=== PATIENT | female | born 1995 | race Hispanic/Latino ===

== ENCOUNTER 2018-05-23 13:11 | Emergency (ER) | payer MEDICAID ==
--- OUTSIDE RECORDS SUMMARY | 2018-05-23 13:13 | XMS REPORT ---
:1995 [facility] Address [address] [place] [address] Dr. Villegas. [address] [place] [id number] Care Team Providers Name Role Phone Unavailable Unavailable Unavailable Problems This patient has no known problems. Allergies, Adverse Reactions, Alerts This patient has no known allergies or adverse reactions. Medications This patient has no known medications.
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
[2018-05-23 15:02] VITALS: TEMP 98.1
[2018-05-23 15:03] VITALS: BP 121/80; O2SAT 99
== END 2018-05-23 14:56 | disposition home or self-care (01) ==
LOC: ER 13:11
DX: S20.219A Contusion of unspecified front wall of thorax, initial encounter (principal); V49.40XA Driver injured in collision with unspecified motor vehicles in traffic accident, initial encounter
CPT/HCPCS: 71045; 99284

== ENCOUNTER 2019-02-28 04:16 | Inpatient (IN) | payer OTHER ==
[~2019-02-28 04:16] MED LIST: CARBOPROST TROME 250 MCG/ML IM PRN; METHYLERGONOVINE 0.2MG/ML AMP IM PRN; OXYTOCIN/LR 20 UNIT/1,000 ML BAG IV SCH; Ringers Lactate 1,000 ML IV PRN; Ringers Lactate 1,000 ML IV SCH
--- OUTSIDE RECORDS SUMMARY | 2019-02-28 04:20 | XMS REPORT ---
:1995 [facility] Address [address] [place] [address] Dr. Villegas. [address] [place] [id number] Care Team Providers Name Role Phone Unavailable Unavailable Unavailable Problems This patient has no known problems. Allergies, Adverse Reactions, Alerts This patient has no known allergies or adverse reactions. Medications This patient has no known medications.
[2019-02-28 05:39] LABS: Basophils % 0.2 % (0-1.3); Hematocrit 35.3 % (36.0-45.0); Lymphocytes % 27.9 % (15.3-44.8); MPV 8.5 fL (7.6-11.3); RBC Red Blood Cell Count 3.97 M/uL (3.86-4.86)
[2019-02-28 05:46] VITALS: BMI 36.5
[2019-02-28 06:12] LABS: Urine Appearance CLOUDY; Urine Bilirubin NEGATIVE (NEG); Urine Blood 1+ (NEG); Urine Color YELLOW; Urine Glucose NEGATIVE (NEG); Urine Protein TRACE (NEG); Urine Specific Gravity 1.025 (1.005-1.030); Urine pH 6.5 (5.0-7.0)
[2019-02-28 06:13] LABS: Urine Microscopic Reflex ORDER UMIC
[2019-02-28 06:22] LABS: Urine Culture Reflex Order REFLEXED
[2019-02-28 06:24] LABS: Calcium Oxalate Crystals- Ur MANY (NONE SEEN); Urine Bacteria 20-50 /HPF (<20); Urine RBC <5 /HPF (NONE SEEN); Urine Urothelial Cells <5 /HPF (NONE SEEN)
[2019-02-28] MEDS ORDERED: FENTANYL CITR 100 MCG/2 ML IV ONE (07:23)
[2019-02-28] MEDS ORDERED: ROPIVACAINE HCL 0.2% 20ML AMP IV ONE (07:23)
[2019-02-28] MEDS ORDERED: ROPIVACAINE HCL 100 ML IV PRN (07:23)
[2019-02-28] MEDS ORDERED: FENTANYL CITR 100 MCG/2 ML ONE (08:25)
[2019-02-28] MEDS ORDERED: Oxycodone HCl/Acetaminophen 1 TAB TAB PO PRN ×2 (11:35)
[2019-02-28] MEDS ORDERED: BISACODYL 10 MG RECTAL SUPP RECT PRN (11:35)
[2019-02-28] MEDS ORDERED: ACETAMINOPHEN 500 MG TAB PO PRN (11:35)
[2019-02-28] MEDS ORDERED: DIPHENHYDRAMINE 25 MG TAB/CAP PO PRN (11:35)
[2019-02-28] MEDS ORDERED: DOCUSATE NA/SENNA CONC 1 TAB PO PRN (11:35)
[2019-02-28] MEDS ORDERED: OXYTOCIN/LR 20 UNIT/1,000 ML BAG IV SCH (12:00)
[2019-02-28] MEDS: IBUPROFEN 200 MG TAB PO PRN ×2 (12:46→22:20)
[2019-02-28 21:11] LABS: RPR (Rapid Plasma Reagin) NON-REACT (NON-REACT)
--- NOTE | 2019-02-28 22:16 | OP ---
Surgeon: Thomas Cuellar MD History: A 23-year-old 2, para 1, followed antepartum, noted to be gestational diabetic as p er [facility], 38 weeks 6 days to 39 weeks gestation, very favorable cervix at 4 to 4.5 prior to adm ission. Rupture of membranes at approximately 5 to 5.5 cm. Patient progressed to 8 cm to 9 cm at wh ich time Dr. Singh did epidural anesthesia, which gave great affect. A second stage of approximately 15 minutes spontaneous vaginal delivery in an estimated 7-pound plus female, Apgars 9 and 9, very sma ll first-degree laceration to posterior fourchette sutured with 3 sutures of 2-0 chromic. Juan nielsen of the placenta, which was inspected and noted to be intact and normal. 325 or less mL estim ated blood loss. The patient tolerated all procedures well. Rh positive, immune to Rubella, negativ e beta strep screen. Final Diagnoses: Term intrauterine 38 weeks 6 days to 39 weeks gestational diabetes, vagin al delivery, epidural anesthesia. SANDRITA/ZAYDA Voice ID: [id number] Report ID: [id number]
[2019-03-01 07:39] VITALS: TEMP 98.3
[2019-03-01] MEDS: IBUPROFEN 200 MG TAB PO PRN (08:45)
[2019-03-01] MEDS ORDERED: Tdap (Diph,Pertuss(Acell),Tet Vac) 0.5 ML SYR IMVAC ONE (09:40)
--- NOTE | 2019-03-01 09:57 | PN ---
Patient is now 8.5 cm, 90%, 0 station. We have called for epidural x2 with no success so far, hopefu lly they will be of get it in before she delivers, may be a spinal type block with fentanyl, but that is questionable at this point as the patient seems to be moving fairly rapidly. SANDRITA/ZAYDA Voice ID: [id number] Report ID: [id number]
--- NOTE | 2019-03-01 09:57 | PREOPHP ---
Date of Admission: 02/28/2019 23-year-old 4, para 3, diagnosed with gestational diabetes, by [facility], is now 38 weeks 6 days, possibly 39 weeks. Very favorable cervix. In fact, she is 4.5 cm in the office. This mornin g, she is 5.5 cm, 90% effaced, 0 station. Rupture of membranes, clear fluid. We will probably be re questing epidural soon. Labor talk given. She is Rh positive, immune to rubella and negative strep screen. SANDRITA/ZAYDA Voice ID: [id number]
--- NOTE | 2019-03-01 10:00 | DS ---
23-year-old 2, para 1, followed antepartum, noted to be gestational diabetic, diagnosed by [facility], delivered of a term infant, Apgars 9 and 9 and the 7 pound plus range, first-degree lacera tion sutured with 3 stitches, 2-0 chromic, epidural anesthesia. Schultze delivery of the placenta. Estimated blood loss 325 cc or less. Rh positive, immune to Rubella. Negative beta strep screen. P ostpartum; afebrile, ambulating and voiding. Lochia is normal. Requests no analgesics on dismissal. To report back to my office in 6 weeks for followup, to report any temperature elevation of 100 deg farhana or greater, severe pain, heavy bleeding, or any other type of abnormalities. She is waiting for a flu shot this morning. Final Diagnoses: Term intrauterine at 38 weeks 6 days, possibly 39 weeks. Vaginal deliver y. Epidural anesthesia. Flu shot pending. SANDRITA/ZAYDA Voice ID: [id number] Report ID: [id number]
[2019-03-01 13:40] VITALS: BP 134/81
[2019-03-04 19:26] LABS: HBsAG Nonreactive (Nonreactive)
== END 2019-03-01 13:20 | disposition home or self-care (01) | DRG 807 ==
LOC: 2ND-WC 04:16
PROVIDERS: ADMIT Specialist; ATTEND Specialist
PROC: 0HQ9XZZ Repair Perineum Skin, External Approach (ICD-10-PCS; principal; 2019-02-28)
PROC: 10E0XZZ Delivery of Products of Conception, External Approach (ICD-10-PCS; 2019-02-28)
DX: O24.429 Gestational diabetes mellitus in childbirth, unspecified control (principal); Z37.0 Single live birth; O70.0 First degree perineal laceration during delivery; Z3A.38 38 weeks gestation of pregnancy
CPT/HCPCS: 36415; 81003; 81015; 85025; 86592; 86850; 86900; 86901; 87086; 87088; 87340; 90715; J2210; J2590; J2795; J3010; J7120

== ENCOUNTER 2020-01-17 13:33 | Emergency (ER) | payer OTHER ==
--- OUTSIDE RECORDS SUMMARY | 2020-01-17 13:35 | XMS REPORT | Continuity of Care Document ---
:1995 Author Organization [facility] t Address [address] Villegas[address] [place] [address] Care Team Providers Name Role Phone Shelia Urias Attending Clinician Unavailable Problems This patient has no known problems. Allergies, Adverse Reactions, Alerts This patient has no known allergies or adverse reactions. Medications This patient has no known medications. Procedures This patient has no known procedures. Encounters Start End Encounter Admission Attending Care Care Encounter Source Date/Time Date/Time Type Type Clinicians Facility Department ID 2018-11-09 2018-11-09 Refill EHRVE Urias [id number] 00:00:00 00:00:00 Genaro Bass NEIGHBORHOOD PLANNER [id number] [facility] [id number] MATERNAL [id number] & CHILD [address] [place] [address] Results This patient has no known results.
[2020-01-17] MEDS ORDERED: NA CHLORIDE 0.9% 1,000 ML ONE (14:20)
[2020-01-17 14:56] LABS: Absolute Lymphocytes (CBC) 2.5 K/uL (0.7-4.9); Basophils % 0.4 % (0-1.3); Hematocrit 37.7 % (36.0-45.0); Lymphocytes % 28.1 % (15.3-44.8); MPV 8.2 fL (7.6-11.3); RBC Red Blood Cell Count 4.39 M/uL (3.86-4.86)
[2020-01-17 15:16] LABS: Potassium 3.5 mmol/L (3.5-5.1)
[2020-01-17 16:07] LABS: Urine Blood NEGATIVE (NEG); Urine Glucose NEGATIVE (NEG); Urine Protein NEGATIVE (NEG); Urine Specific Gravity 1.025 (1.005-1.030)
--- NOTE | 2020-01-17 16:48 | ER ---
Nurse's Notes [facility] Name: Pricila Xiong Age: 24 yrs Sex: Female : 1995 Arrival Date: 01/17/2020 Time: 13:35 Bed 19 Private MD: Diagnosis: related conditions, unspecified;Dizziness and giddiness;Volume depletion Presentation: 01/16 13:37 Chief complaint: Patient states: "I am having a headache and a little bit if dizziness. jd3 I am 6 weeks and I saw the doc yesterday who gave me meds for my vomiting.". Coronavirus screen: At this time, the client does not indicate any symptoms associated with coronavirus-19. Ebola Screen: Patient negative for fever greater than or equal to 101.5 degrees Fahrenheit, and additional compatible Ebola Virus Disease symptoms. Initial Sepsis Screen: Does the patient meet any 2 criteria? No. Patient's initial sepsis screen is negative. Does the patient have a suspected source of infection? No. Patient's initial sepsis screen is negative. Risk Assessment: Do you want to hurt yourself or someone else? Patient reports no desire to harm self or others. Onset of symptoms was January 14, 2020. 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 - Social history:: Smoking status: Patient denies any tobacco usage or history of. Screenin:45 Abuse screen: Denies threats or abuse. Nutritional screening: No deficits noted. rb3 Tuberculosis screening: No symptoms or risk factors identified. Fall Risk None identified. Assessment: 13:45 General: Appears in no apparent distress. comfortable, Behavior is calm, cooperative. rb3 Pain: Complains of pain in head. Neuro: Level of Consciousness is awake, alert, obeys commands, Oriented to person, place, time, situation, Reports dizziness, headache. Cardiovascular: Patient's skin is warm and dry. Respiratory: Airway is patent Respiratory effort is even, unlabored, Respiratory pattern is regular, symmetrical. 13:45 : No signs and/or symptoms were reported regarding the genitourinary system. Denies rb3 burning with urination, vaginal bleeding. 14:20 Reassessment: Patient appears in no apparent distress at this time. Patient and/or rb3 family updated on plan of care and expected duration. Pain level reassessed. Patient is alert, oriented x 3, equal unlabored respirations, skin warm/dry/pink. 15:44 Reassessment: Pt. ambulated to the restroom without difficulty. rb3 16:42 Reassessment: Patient appears in no apparent distress at this time. Patient and/or rb3 family updated on plan of care and expected duration. Pain level reassessed. Patient is alert, oriented x 3, equal unlabored respirations, skin warm/dry/pink. Patient denies pain at this time. Vital Signs: 13:39 BP 140 / 82; Pulse 98; Resp 17 S; Temp 97.7(TE); Pulse Ox 100% on R/A; Weight 86.64 kg jd3 (R); Height 5 ft. 0 in. (152.40 cm) (R); Pain 8/10; 15:40 BP 121 / 73; Pulse 78; Resp 16; Pulse Ox 98% ; rb3 16:59 BP 132 / 79 LA Supine (auto/reg); Pulse 80; Resp 16; Pulse Ox 99% on R/A; dh4 16:59 BP 136 / 91 LA Standing (auto/reg); Pulse 89; Resp 18; Pulse Ox 98% on R/A; dh4 16:59 BP 132 / 85 LA Sitting (auto/reg); Pulse 80; Resp 18; Pulse Ox 99% on R/A; dh4 13:39 Body Mass Index 37.30 (86.64 kg, 152.40 cm) jd3 ED Course: 13:35 Patient arrived in ED. as 13:38 Triage completed. jd3 13:41 Arm band placed on. jd3 13:45 Patient has correct armband on for positive identification. Bed in low position. Call rb3 light in reach. Side rails up X 1. Pulse ox on. NIBP on. 13:45 Inserted saline lock: 20 gauge in right antecubital area, using aseptic technique. rb3 Blood collected. 13:56 Alaina Brito FNP-C is [facility]. snw 13:56 Adonis Espana MD is Attending Physician. snw 17:10 No provider procedures requiring assistance completed. IV discontinued, intact, rb3 bleeding controlled, No redness/swelling at site. Pressure dressing applied. Administered Medications: 14:25 Drug: NS 0.9% 1000 ml Route: IV; Rate: 1 bolus; Site: right antecubital; rb3 15:51 Follow up: IV Status: Completed infusion rb3 Outcome: 16:48 Discharge ordered by . snw 17:10 Discharged to home ambulatory. rb3 17:10 Condition: stable 17:10 Discharge instructions given to patient, Instructed on discharge instructions, follow up and referral plans. Demonstrated understanding of instructions, follow-up care, Prescriptions given X none 17:11 Patient left the ED. rb3 Signatures: Alaina Brito FNP-C BACK SHOE WORKER-CsnCyndy Tripp Jonathon RN RN jd3 Patricio Ellis formerly [facility] Lyndsay Valderrama, RN RN rb3 Corrections: (The following items were deleted from the chart) 13:41 13:39 Resp 17bpm; Spontaneous; Pulse Ox 100% RA; Temp 97.7F; 86.64 kg Reported; Height jd3 5 ft. 0 in. Reported; BMI: 37.3; Pain 8/10; jd3 15:42 13:45 Respiratory: Airway is patent Respiratory effort is even, unlabored, Respiratory rb3 pattern is regular, symmetrical, rb3 15:42 15:41 : No signs and/or symptoms were reported regarding the genitourinary system. [id number] 15:45 13:45 : No signs and/or symptoms were reported regarding the genitourinary system. [id number]
--- NOTE | 2020-01-17 16:49 | EDPHYS ---
Physician Documentation [facility] Name: Pricila Xiong Age: 24 yrs Sex: Female : 1995 Arrival Date: 01/17/2020 Time: 13:35 Bed 19 Private MD: ED Physician Adonis Espana HPI: 01/16 14:24 This 24 yrs old Female presents to ER via Wheelchair with complaints of snw Dizziness - 6 wks preg. 14:24 The patient presents with lightheadedness. Onset: The symptoms/episode began/occurred snw acutely. Context: occurred at home, + , , pt went to help center, dates used 11/05/[address] Cuellar yesterday. Using 11/14/19 as LMP. Pt given rx for zofran. C/o dizziness. Associated signs and symptoms: Pertinent positives: nausea, . Severity of symptoms: At their worst the symptoms were moderate in the emergency department the symptoms have improved mildly, moderately. It is unknown whether or not the patient has had similar symptoms in the past. The patient has been recently seen by a physician: as noted. 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 - Social history:: Smoking status: Patient denies any tobacco usage or history of. ROS: 14:22 Constitutional: Negative for fever, chills, and weight loss, Eyes: Negative for injury, snw pain, redness, and discharge, ENT: Negative for injury, pain, and discharge, Neck: Negative for injury, pain, and swelling, Cardiovascular: Negative for chest pain, palpitations, and edema, Respiratory: Negative for shortness of breath, cough, wheezing, and pleuritic chest pain, Abdomen/GI: Negative for abdominal pain, nausea, vomiting, diarrhea, and constipation, Back: Negative for injury and pain, : Negative for injury, bleeding, discharge, and swelling, MS/Extremity: Negative for injury and deformity, Skin: Negative for injury, rash, and discoloration, Neuro: Negative for headache, weakness, numbness, tingling, and seizure, + dizziness Psych: Negative for depression, anxiety, suicide ideation, homicidal ideation, and hallucinations. Exam: 14:22 Constitutional: This is a well developed, well nourished patient who is awake, alert, snw and in no acute distress. Head/Face: Normocephalic, atraumatic. Eyes: Pupils equal round and reactive to light, extra-ocular motions intact. Lids and lashes normal. Conjunctiva and sclera are non-icteric and not injected. Cornea within normal limits. Periorbital areas with no swelling, redness, or edema. ENT: Nares patent. No nasal discharge, no septal abnormalities noted. Tympanic membranes are normal and external auditory canals are clear. Oropharynx with no redness, swelling, or masses, exudates, or evidence of obstruction, uvula midline. Mucous membranes moist. Neck: Trachea midline, no thyromegaly or masses palpated, and no cervical lymphadenopathy. Supple, full range of motion without nuchal rigidity, or vertebral point tenderness. No Meningismus. Chest/axilla: Normal chest wall appearance and motion. Nontender with no deformity. No lesions are appreciated. Cardiovascular: Regular rate and rhythm with a normal S1 and S2. No gallops, murmurs, or rubs. Normal PMI, no JVD. No pulse deficits. Respiratory: Lungs have equal breath sounds bilaterally, clear to auscultation and percussion. No rales, rhonchi or wheezes noted. No increased work of breathing, no retractions or nasal flaring. Abdomen/GI: Soft, non-tender, with normal bowel sounds. No distension or tympany. No guarding or rebound. No evidence of tenderness throughout. Back: No spinal tenderness. No costovertebral tenderness. Full range of motion. Skin: Warm, dry with normal turgor. Normal color with no rashes, no lesions, and no evidence of cellulitis. MS/ Extremity: Pulses equal, no cyanosis. Neurovascular intact. Full, normal range of motion. Neuro: Awake and alert, GCS 15, oriented to person, place, time, and situation. Cranial nerves II-XII grossly intact. Motor strength 5/5 in all extremities. Sensory grossly intact. Cerebellar exam normal. Normal gait. Psych: Awake, alert, with orientation to person, place and time. Behavior, mood, and affect are within normal limits. Vital Signs: 13:39 BP 140 / 82; Pulse 98; Resp 17 S; Temp 97.7(TE); Pulse Ox 100% on R/A; Weight 86.64 kg jd3 (R); Height 5 ft. 0 in. (152.40 cm) (R); Pain 8/10; 15:40 BP 121 / 73; Pulse 78; Resp 16; Pulse Ox 98% ; rb3 16:59 BP 132 / 79 LA Supine (auto/reg); Pulse 80; Resp 16; Pulse Ox 99% on R/A; dh4 16:59 BP 136 / 91 LA Standing (auto/reg); Pulse 89; Resp 18; Pulse Ox 98% on R/A; dh4 16:59 BP 132 / 85 LA Sitting (auto/reg); Pulse 80; Resp 18; Pulse Ox 99% on R/A; dh4 13:39 Body Mass Index 37.30 (86.64 kg, 152.40 cm) jd3 MDM: 13:57 Patient medically screened. snw 16:48 Data reviewed: vital signs, nurses notes. Data interpreted: Pulse oximetry: on room air snw is 98 %. Interpretation: normal. Counseling: I had a detailed discussion with the patient and/or guardian regarding: the historical points, exam findings, and any diagnostic results supporting the discharge/admit diagnosis, lab results, the need for outpatient follow up, to return to the emergency department if symptoms worsen or persist or if there are any questions or concerns that arise at home. Special discussion: Based on the history and exam findings, there is no indication for further emergent testing or inpatient evaluation. I discussed with the patient/guardian the need to see the OB Gyne specialist for further evaluation of the symptoms. I discussed with the patient/guardian the need to see the primary care provider for further evaluation of the symptoms. 01/16 13:58 Order name: Quantitative Hcg; Complete Time: 15:22 snw 01/16 13:58 Order name: Abo/rh Typing; Complete Time: 15:22 snw 01/16 13:58 Order name: Basic Metabolic Panel; Complete Time: 15:22 snw 01/16 13:58 Order name: CBC with Diff; Complete Time: 15:22 snw 01/16 15:50 Order name: Urine Dipstick--Ancillary (enter results); Complete Time: 16:13 em1 01/16 15:50 Order name: Urine --Ancillary (enter results); Complete Time: 16:13 em1 01/16 13:58 Order name: Urine Test (obtain specimen); Complete Time: 15:48 snw 01/16 13:58 Order name: IV Saline Lock; Complete Time: 15:16 snw 01/16 13:58 Order name: Labs collected and sent; Complete Time: 15:16 snw 01/16 13:58 Order name: NPO; Complete Time: 15:16 snw 01/16 13:58 Order name: Urine Dipstick-Ancillary (obtain specimen); Complete Time: 15:48 snw 01/16 16:34 Order name: Orthostatics; Complete Time: 17:00 snw Administered Medications: 14:25 Drug: NS 0.9% 1000 ml Route: IV; Rate: 1 bolus; Site: right antecubital; rb3 15:51 Follow up: IV Status: Completed infusion rb3 Disposition: 18:28 Co-signature as Attending Physician, Adonis Espana MD I agree with the assessment and kdr plan of care. Disposition: 01/17/20 16:48 Discharged to Home. Impression: related conditions, unspecified, Dizziness and giddiness, Volume depletion. - Condition is Stable. - Discharge Instructions: Dehydration, Adult, First Trimester of , Rehydration, Adult. - Medication Reconciliation Form, Thank You Letter, Antibiotic Education, Prescription Opioid Use, School release form form. - Follow up: Emergency Department; When: As needed; Reason: Worsening of condition. Follow up: Private Physician; When: 2 - 3 days; Reason: Recheck today's complaints, Continuance of care, Re-evaluation by your physician. Signatures: Dispatcher [employer] EDMS Adonis Espana MD MD kdr Waters, Shelly, FUNERAL HOME MANAGER-C FUNERAL HOME MANAGER-Jaycob Escobar RN RN jLyndsay Champagne RN RN rb3 Corrections: (The following items were deleted from the chart) 17:11 16:48 01/17/2020 16:48 Discharged to Home. Impression: related conditions, rb3 unspecified; Dizziness and giddiness; Volume depletion. Condition is Stable. Forms are Medication Reconciliation Form, Thank You Letter, Antibiotic Education, Prescription Opioid Use. Follow up: Emergency Department; When: As needed; Reason: Worsening of condition. Follow up: Private Physician; When: 2 - 3 days; Reason: Recheck today's complaints, Continuance of care, Re-evaluation by your physician. snw
[2020-01-17 18:31] VITALS: TEMP 97.7
[2020-01-17 18:35] VITALS: BP 132/85; O2SAT 99
== END 2020-01-17 17:11 | disposition home or self-care (01) ==
LOC: ER 13:33
DX: O99.281 Endocrine, nutritional and metabolic diseases complicating pregnancy, first trimester (principal); E86.9 Volume depletion, unspecified; Z3A.01 Less than 8 weeks gestation of pregnancy
CPT/HCPCS: 85025; 80048; 36415; 86900; 81025; 86901; 84702; 81003; 96360; 99284; J7030

== ENCOUNTER 2020-01-26 17:52 | Emergency (ER) | payer OTHER ==
--- OUTSIDE RECORDS SUMMARY | 2020-01-26 17:54 | XMS REPORT | Continuity of Care Document ---
:1995 Author Organization [facility] t Address [address] [place] [address] Care Team Providers Name Role Phone Shelia [...] Clinicians Facility Department ID 2018-11-09 2018-11-09 Refill HERVE Urias [id number] 00:00:00 00:00:00 Genaro Bass MID LEVEL NET DEVELOPER [id number] [facility] [id number] MATERNAL [phone] & CHILD [address] [place] [address] Results This patient has no known results.
[2020-01-26 18:45] LABS: Urine Amorphous Sediment 1+ /HPF (NONE SEEN); Urine Bacteria 20-50 /HPF (<20); Urine Culture Reflex Order REFLEXED
[2020-01-26 18:46] LABS: Urine Blood 2+ (NEG); Urine Glucose NEGATIVE (NEG); Urine Protein NEGATIVE (NEG); Urine Specific Gravity >1.030 (1.005-1.030); Urine pH 5.5 (5.0-7.0)
[2020-01-26 18:59] LABS: Absolute Lymphocytes (CBC) 2.4 K/uL (0.7-4.9); Hematocrit 37.6 % (36.0-45.0); Lymphocytes % 25.2 % (15.3-44.8); MPV 8.3 fL (7.6-11.3); RBC Red Blood Cell Count 4.34 M/uL (3.86-4.86)
[2020-01-26] MEDS ORDERED: CEFTRIAXONE/SWI 1gm 1 GM/10 ML SYR ONE (19:23)
[2020-01-26 19:27] LABS: BUN Blood Urea Nitrogen 6 mg/dL (7-18); Bicarbonate 26 mmol/L (21-32); Glucose Level 88 mg/dL (74-106); HCG, Quantitative 28619 mIU/mL (1-3); Potassium 3.7 mmol/L (3.5-5.1); Sodium Level 140 mmol/L (136-145)
--- NOTE | 2020-01-26 21:23 | ER ---
Nurse's Notes [facility] Name: Pricila Xiong Age: 24 yrs Sex: Female : 1995 Arrival Date: 01/26/2020 Time: 17:54 Bed 20 Private MD: Diagnosis: Threatened Presentation: 01/25 18:00 Chief complaint: Patient states: "I am and I am started to have bleeding and jd3 cramping.". Coronavirus screen: At this time, the client does not indicate any symptoms associated with coronavirus-19. Ebola Screen: Patient negative for fever greater than or equal to 101.5 degrees Fahrenheit, and additional compatible Ebola Virus Disease symptoms. Initial Sepsis Screen: Does the patient meet any 2 criteria? No. Patient's initial sepsis screen is negative. Does the patient have a suspected source of infection? No. Patient's initial sepsis screen is negative. Risk Assessment: Do you want to hurt yourself or someone else? Patient reports no desire to harm self or others. Onset of symptoms was January 26, 2020. 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 - Social history:: Smoking status: Patient/guardian denies using tobacco, Stopped _ months ago 2. Screenin:55 Abuse screen: Denies threats or abuse. Nutritional screening: No deficits noted. Tuberculosis screening: No symptoms or risk factors identified. Fall Risk None identified. Assessment: 18:20 General: Appears in no apparent distress. Behavior is calm, cooperative, appropriate for age. Pain: Complains of pain in suprapubic area Quality of pain is described as crampy, Pain began today. Neuro: Level of Consciousness is awake, alert, obeys commands, Oriented to person, place, time, situation, Appropriate for age. Cardiovascular: Heart tones S1 S2 present Capillary refill < 3 seconds Patient's skin is warm and dry. Respiratory: Airway is patent Respiratory effort is even, unlabored, Respiratory pattern is regular, symmetrical, GI: Abdomen is distended, noted to have ascites, Bowel sounds present X 4 quads. GI: Abdomen is distended, Abd is non tender Pt states that she is approx 7 weeks preg. Derm: Skin is intact, is healthy with good turgor, Skin is dry. Musculoskeletal: Circulation, motion, and sensation intact. Capillary refill < 3 seconds. 19:30 Reassessment: Patient appears in no apparent distress at this time. Patient is alert, lp1 oriented x 3, equal unlabored respirations, skin warm/dry/pink. Patient denies any pelvic cramping at this time, 0-10 on pain scale; aware of waiting for s tech for imaging Patient denies pain at this time. 21:38 Reassessment: Patient is alert, oriented x 3, equal unlabored respirations, skin lp1 warm/dry/pink. Patient denies pain at this time. Vital Signs: 18:02 BP 138 / 94; Pulse 98; Resp 17 S; Temp 98.4(TE); Pulse Ox 99% on R/A; Weight 86.64 kg jd3 (R); Height 5 ft. 0 in. (152.40 cm) (R); Pain 6/10; 19:30 BP 135 / 85; Pulse 88; Resp 16; Pulse Ox 98% on R/A; lp1 20:15 BP 127 / 64; Pulse 96; Resp 16; Pulse Ox 99% on R/A; lp1 21:38 BP 118 / 77; Pulse 80; Resp 16; Pulse Ox 100% on R/A; Pain 0/10; lp1 18:02 Body Mass Index 37.30 (86.64 kg, 152.40 cm) jd3 ED Course: 17:54 Patient arrived in ED. ag5 18:01 Triage completed. jd3 18:04 Arm band placed on. jd3 18:09 Boom Bolton NP is PHCP. pm1 18:09 Shahriar Booth MD is Attending Physician. pm1 18:13 Danya Onofre, RN is Primary Nurse. ah 18:54 Patient has correct armband on for positive identification. Placed in gown. Bed in low ah position. Call light in reach. Side rails up X 1. Pulse ox on. NIBP on. 18:54 Urine collected: clean catch specimen, clear. Inserted saline lock: 22 gauge in left ah antecubital area, using aseptic technique. Blood collected. 20:07 No provider procedures requiring assistance completed. lp1 20:23 PHCP role handed off by Boom Bolton NP cp 20:23 Dave Hargrove PA is PHCP. cp 20:26 Boom Bolton NP is PHCP. cp 20:47 US Transvaginal Ob In Process Unspecified. EDMS 21:05 PHCP role handed off by Boom Bolton NP cp 21:05 Dave Hargrove PA is PHCP. cp 21:22 Thomas Cuellar MD is Referral Physician. cp 21:39 IV discontinued, No redness/swelling at site. Pressure dressing applied. lp1 Administered Medications: 19:21 Drug: Rocephin 1 grams Route: IV; Rate: calculated rate; Site: left antecubital; lp1 20:30 Follow up: IV Status: Completed infusion; IV Intake: 10ml lp1 Intake: 20:30 IV: 10ml; Total: 10ml. lp1 Outcome: 21:22 Discharge ordered by . cp 21:39 Discharged to home ambulatory. lp1 21:39 Condition: good 21:39 Discharge instructions given to patient, Instructed on discharge instructions, follow up and referral plans. medication usage, Demonstrated understanding of instructions, follow-up care, medications, Prescriptions given X 1. 21:39 Patient left the ED. lp1 Signatures: Dispatcher [employer] [facility] Ebony James RN RN lp1 Dave Hargrove PA PA cp Boom Bolton NP EVENT SERVICES MANAGER pm1 Jaycob Trejo RN RN jd3 Gaskin, Ajare ag5 Danya Onofre RN RN ah Corrections: (The following items were deleted from the chart) 18:54 18:20 GI: Abd is non tender ah ah
--- NOTE | 2020-01-26 21:23 | EDPHYS ---
Physician Documentation [facility] Name: Pricila Xiong Age: 24 yrs Sex: Female : 1995 Arrival Date: 01/26/2020 Time: 17:54 Bed 20 Private MD: ED Physician Shahriar Booth HPI: 01/25 18:38 This 24 yrs old Female presents to ER via Ambulatory with complaints of pm1 Abdominal Cramping, Vaginal Bleeding, + Preg <12wks. 18:38 The patient presents to the emergency department with vaginal bleeding. The estimated pm1 gestational age is 7 weeks. course: care: none, Leakage of Fluid: none appreciated, Ultrasound: the patient has not had an ultrasound, Risk/complications: no obvious risks or complications are appreciated. Previous pregnancies: in previous pregnancies patient has had no complications. Associated signs and symptoms: Pertinent positives: suprapubic cramping and pain, Pertinent negatives: dysuria, fever, vaginal discharge. The patient has not experienced similar symptoms in the past. The patient has not recently seen a physician. 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 - Social history:: Smoking status: Patient/guardian denies using tobacco, Stopped _ months ago 2. ROS: 18:38 Constitutional: Negative for fever, chills, and weight loss, Cardiovascular: Negative pm1 for chest pain, palpitations, and edema, Respiratory: Negative for shortness of breath, cough, wheezing, and pleuritic chest pain. 18:38 Back: Negative for injury and pain, MS/Extremity: Negative for injury and deformity, Skin: Negative for injury, rash, and discoloration, Neuro: Negative for headache, weakness, numbness, tingling, and seizure. 18:38 Abdomen/GI: Positive for abdominal cramps, of the suprapubic area, Negative for nausea, vomiting, and diarrhea. 18:38 : Positive for vaginal bleeding, Negative for burning with urination, difficulty urinating. Exam: 18:38 Constitutional: This is a well developed, well nourished patient who is awake, alert, pm1 and in no acute distress. Head/Face: Normocephalic, atraumatic. 18:38 Abdomen/GI: Soft, non-tender, with normal bowel sounds. No distension or tympany. No guarding or rebound. No evidence of tenderness throughout. Skin: Warm, dry with normal turgor. Normal color with no rashes, no lesions, and no evidence of cellulitis. MS/ Extremity: Pulses equal, no cyanosis. Neurovascular intact. Full, normal range of motion. 18:38 Cardiovascular: Exam negative for acute changes, Rate: normal, Rhythm: regular, Pulses: no pulse deficits are appreciated. 18:38 Respiratory: Exam negative for acute changes, respiratory distress, shortness of breath. 18:38 Neuro: Exam negative for acute changes, Orientation: is normal, Mentation: is normal, Motor: is normal, moves all fours. Vital Signs: 18:02 BP 138 / 94; Pulse 98; Resp 17 S; Temp 98.4(TE); Pulse Ox 99% on R/A; Weight 86.64 kg jd3 (R); Height 5 ft. 0 in. (152.40 cm) (R); Pain 6/10; 19:30 BP 135 / 85; Pulse 88; Resp 16; Pulse Ox 98% on R/A; lp1 20:15 BP 127 / 64; Pulse 96; Resp 16; Pulse Ox 99% on R/A; lp1 21:38 BP 118 / 77; Pulse 80; Resp 16; Pulse Ox 100% on R/A; Pain 0/10; lp1 18:02 Body Mass Index 37.30 (86.64 kg, 152.40 cm) jd3 MDM: 18:09 Patient medically screened. pm1 18:41 Data reviewed: vital signs. Data interpreted: Pulse oximetry: on room air is 99 %. pm1 Interpretation: normal. 20:51 Transition of care: After a detail discussion of the patient's case, care is pm1 transferred to Dave PULLIAM. 01/25 18:10 Order name: Quantitative Hcg; Complete Time: 19:34 pm1 01/25 18:10 Order name: Abo/rh Typing; Complete Time: 19:14 pm1 01/25 18:10 Order name: Basic Metabolic Panel; Complete Time: 19:34 pm1 01/25 18:10 Order name: CBC with Diff; Complete Time: 19:08 pm1 01/25 18:10 Order name: Urine Microscopic Only; Complete Time: 18:49 pm1 01/25 18:26 Order name: Urine Dipstick--Ancillary (enter results); Complete Time: 18:49 mt 01/25 18:10 Order name: Urine Test (obtain specimen); Complete Time: 18:27 pm1 01/25 18:10 Order name: IV Saline Lock; Complete Time: 18:50 pm1 01/25 18:10 Order name: Labs collected and sent; Complete Time: 18:50 pm1 01/25 18:10 Order name: NPO; Complete Time: 18:26 pm1 01/25 18:26 Order name: Urine --Ancillary (enter results); Complete Time: 18:49 mt 01/25 18:38 Order name: US Transvaginal Ob; Complete Time: 09:10 pm1 01/25 18:46 Order name: Urine Culture EDMN 01/25 18:10 Order name: Urine Dipstick-Ancillary (obtain specimen); Complete Time: 18:26 pm1 Administered Medications: 19:21 Drug: Rocephin 1 grams Route: IV; Rate: calculated rate; Site: left antecubital; lp1 20:30 Follow up: IV Status: Completed infusion; IV Intake: 10ml lp1 Disposition: 01/26 07:05 Co-signature as Attending Physician, Shahriar Booth MD. rn Disposition: 01/26/20 21:22 Discharged to Home. Impression: Threatened . - Condition is Stable. - Discharge Instructions: Threatened Miscarriage, and Urinary Tract Infection, Pelvic Rest. - Prescriptions for Macrobid 100 mg Oral Capsule - take 1 capsule by ORAL route every 12 hours for 10 days; 20 capsule. - Medication Reconciliation Form, Thank You Letter, Antibiotic Education, Prescription Opioid Use form. - Follow up: Emergency Department; When: As needed; Reason: Worsening of condition. Follow up: Thomas Cuellar; When: 2 - 3 days; Reason: Recheck today's complaints, Continuance of care, Re-evaluation by your physician. - Problem is new. - Symptoms have improved. Signatures: Dispatcher [employer] EDMS Shahriar Booth MD MD rn Ebony James RN RN lp1 Dave Hargrove PA PA cp Boom Bolton, ERIKA PARIMUTUEL TICKET SELLER pm1 Jaycob Trejo RN RN jd3 Corrections: (The following items were deleted from the chart) 01/25 21:39 21:22 01/26/2020 21:22 Discharged to Home. Impression: Threatened . Condition lp1 is Stable. Discharge Instructions: Threatened Miscarriage, and Urinary Tract Infection, Pelvic Rest. Prescriptions for Macrobid 100 mg Oral Capsule - take 1 capsule by ORAL route every 12 hours for 10 days; 20 capsule. and Forms are Medication Reconciliation Form, Thank You Letter, Antibiotic Education, Prescription Opioid Use. Follow up: Emergency Department; When: As needed; Reason: Worsening of condition. Follow up: Thomas Cuellar; When: 2 - 3 days; Reason: Recheck today's complaints, Continuance of care, Re-evaluation by your physician. Problem is new. Symptoms have improved. cp
--- NOTE | 2020-01-26 21:46 | RAD REPORT ---
EXAM DESCRIPTION: US - Transvaginal OB - 01/26/2020 9:35 pm CLINICAL HISTORY: with vaginal bleeding COMPARISON: None. FINDINGS: The uterus measures 12 x 6 x 7 centimeters. A normal appearing gestational sac is present within the endometrium. Within this is a yolk sac and pole with a crown-rump length 0.8 centim eters. Cardiac activity 130 beats per minute Right and left ovary appear normal. 2.4 centimeter left ovarian cyst. . An adnexal mass is not noted. A sliver of fluid is present within the cervical canal No significant free fluid is seen. IMPRESSION: Single live intrauterine with an estimated gestational age 6 weeks 5 days ROGELIO 09/15/2020
[2020-01-27 01:25] VITALS: TEMP 98.4
[2020-01-27 01:30] VITALS: BP 118/77; O2SAT 100
== END 2020-01-26 21:39 | disposition home or self-care (01) ==
LOC: ER 17:52
DX: O20.0 Threatened abortion (principal); Z3A.01 Less than 8 weeks gestation of pregnancy
CPT/HCPCS: 96365; 87088; 85025; 87086; 80048; 36415; 86900; 81025; 86901; 84702; 76817; 99284; J0696; 81003; 81015

== ENCOUNTER 2020-08-24 20:09 | Inpatient (IN) | payer OTHER ==
[2020-08-24] MEDS ORDERED: METHYLERGONOVINE 0.2MG/ML AMP IM PRN (22:52)
[2020-08-24] MEDS ORDERED: CARBOPROST TROME 250 MCG/ML IM PRN (22:52)
[2020-08-24] MEDS ORDERED: Ringers Lactate 1,000 ML IV PRN (22:52)
[2020-08-24] MEDS ORDERED: Ringers Lactate 1,000 ML IV SCH (23:00)
[2020-08-24] MEDS ORDERED: OXYTOCIN/LR 20 UNIT/1,000 ML BAG IV SCH (23:00)
[2020-08-24] MEDS ORDERED: FENTANYL CITR 100 MCG/2 ML IV ONE (23:08)
[2020-08-24 23:16] LABS: Urine Appearance CLEAR (Clear); Urine Bilirubin NEGATIVE (Negative); Urine Blood NEGATIVE (Negative); Urine Color YELLOW (Yellow); Urine Glucose NEGATIVE (Negative); Urine Protein NEGATIVE (Negative)
[2020-08-24 23:18] VITALS: BMI 37.5
[2020-08-24 23:20] LABS: Urine Microscopic Reflex ORDER UMIC
[2020-08-24 23:27] LABS: Absolute Lymphocytes (CBC) 2.8 K/uL (0.7-4.9); Basophils % 0.5 % (0-1.3); Hematocrit 38.5 % (36.0-45.0); Lymphocytes % 24.3 % (15.3-44.8); MPV 8.9 fL (7.6-11.3); RBC Red Blood Cell Count 4.29 M/uL (3.86-4.86)
[2020-08-24 23:52] LABS: Urine Bacteria <20 /HPF (<20); Urine RBC <5 /HPF (NONE SEEN); Urine Urothelial Cells <5 /HPF (NONE SEEN)
[2020-08-25 00:05] LABS: RPR (Rapid Plasma Reagin) NON-REACT (NON-REACT)
[2020-08-25] MEDS ORDERED: ROPIVACAINE HCL 100 ML EP ONE (00:11)
[2020-08-25] MEDS ORDERED: ROPIVACAINE HCL 0 ML ONE (00:11)
[2020-08-25] MEDS ORDERED: miSOPROStoL 100 MCG TAB ONE (05:30)
[2020-08-25] MEDS ORDERED: ONDANSETRON 4 MG (ODT) TAB PO PRN (05:34)
[2020-08-25] MEDS ORDERED: DOCUSATE NA/SENNA CONC 1 TAB PO PRN (05:34)
[2020-08-25] MEDS ORDERED: IBUPROFEN 200 MG TAB PO PRN (05:34)
[2020-08-25] MEDS ORDERED: Tdap (Diph,Pertuss(Acell),Tet Vac) 0.5 ML SYR IMVAC ONE (05:34)
[2020-08-25] MEDS: Oxycodone HCl/Acetaminophen 1 TAB TAB PO PRN ×2 (06:45→22:50)
[2020-08-25] MEDS: METHYLERGONOVINE 0.2 MG TAB PO PRN ×4 (06:45→19:00)
[2020-08-25] MEDS ORDERED: METHYLERGONOVINE 0.2 MG TAB PO ONE (07:05)
[2020-08-25] MEDS ORDERED: OXYTOCIN/LR 20 UNIT/1,000 ML BAG IV ONE (08:29)
--- NOTE | 2020-08-25 09:17 | PN ---
Pricila Patino is a multiparous female, delivered early this morning by Dr. Wood, had a r outine delivery, no lacerations. Initial blood loss estimate of 100 cc. Then, the patient apparentl y experienced uterine hypotonus, was given Cytotec 400 mcg rectally as well as IM Pitocin and IV Nolan scott and IM Methergine. Her lochia is now normal. We will continue the IV until lunchtime. Continue the Methergine orally every 4 hours. Right now, it looks like the patient just experienced uterine hypotonus, which is now responding to the medications. We will keep her n.p.o. until everything has been normal for several hours. Doing well otherwise. SANDRITA/ZAYDA Voice ID: [id number] Report ID: [id number]
[2020-08-25] MEDS ORDERED: OXYTOCIN/LR 20 UNIT/1,000 ML BAG IV SCH (12:00)
[2020-08-26 09:00] VITALS: BP 119/64; TEMP 97.5
[2020-08-26] MEDS ORDERED: Tdap (Diph,Pertuss(Acell),Tet Vac) 0.5 ML SYR IMVAC ONE (10:00)
[2020-08-26] MEDS ORDERED: IBUPROFEN 600 MG TAB PO PRN (10:00)
--- NOTE | 2020-08-26 10:36 | DS ---
Hospital Course: Pricila Patino is a 24-year-old, multiparous female, followed antepartu m and noted to be gestational diabetic in good control. Came into Labor and Delivery at 37 weeks in active labor, was delivered of a 7-pound 3-ounce female, Apgars 9 and 9. No episiotomy. No lacerati ons. Epidural anesthesia. Schultze delivery of the placenta with initial blood loss estimated at 10 0 mL. Negative strep. Negative immune to rubella and Rh positive. Within the first hour, experienc ed uterine hypotonus, was given Cytotec rectally, IV drip Pitocin and massage and this stopped bleedi ng. She was subsequently put on Methergine every 4 hours x4 doses and this has been completed. She will be dismissed later this morning to report back to my office in 6 weeks for followup to report an y temperature elevation of 100 degrees or greater, severe pain, heavy bleeding, or any other type of problems. No post epidural problems reported. Tdap has been suggested numerous times during the pre gnancy and again today. Final Diagnoses: Term intrauterine at 37 weeks, gestational diabetes, spontaneous labor, v aginal delivery, uterine hypotonus now resolved, dismissed. SANDRITA/MODL Voice ID: [id number] Report ID: [id number]
[2020-08-27 19:28] LABS: HBsAG Nonreactive (Nonreactive)
== END 2020-08-26 11:25 | disposition home or self-care (01) | DRG 807 ==
LOC: L&D 20:09 → 2ND-WC 22:51
PROVIDERS: ADMIT Obstetrics & Gynecology; ATTEND Obstetrics & Gynecology
PROC: 10E0XZZ Delivery of Products of Conception, External Approach (ICD-10-PCS; principal; 2020-08-25)
PROC: 3E033VJ Introduction of Other Hormone into Peripheral Vein, Percutaneous Approach (ICD-10-PCS; 2020-08-25)
PROC: 10907ZC Drainage of Amniotic Fluid, Therapeutic from Products of Conception, Via Natural or Artificial Opening (ICD-10-PCS; 2020-08-25)
DX: O24.429 Gestational diabetes mellitus in childbirth, unspecified control (principal); Z37.0 Single live birth; O62.0 Primary inadequate contractions; Z3A.37 37 weeks gestation of pregnancy; Z20.822 Contact with and (suspected) exposure to COVID-19; Z23 Encounter for immunization
CPT/HCPCS: 36415; 81003; 81015; 85025; 86592; 86901; 87086; 87088; 87340; 88307; 90471; 90715; J2210; J2590; J2795; J3010; J7120; U0003

== ENCOUNTER → 2023-05-18 | Emergency (ER) | payer OTHER, SELFPAY ==
[~2023-05-18] MED LIST changes: -CARBOPROST TROME 250 MCG/ML IM PRN; -METHYLERGONOVINE 0.2MG/ML AMP IM PRN; -OXYTOCIN/LR 20 UNIT/1,000 ML BAG IV SCH; -Ringers Lactate 1,000 ML IV PRN; -Ringers Lactate 1,000 ML IV SCH; +SMZ./TMP. 800/160 MG TABLET ONE; +TRAMADOL HCL 50 MG TAB ONE
--- OUTSIDE RECORDS SUMMARY | 2023-05-18 10:44 | XMS REPORT | Continuity of Care Document ---
Author Name Unknown Address [address] [facility] [address] [place] [address] [facility] thconnect Address [address] [place] [address] Care Team Providers Care Web Content Manager Name Role Phone PCP, PATIENT DOES NOT HAVE A Primary Care Physic eldon Unavailable YARY AMBROCIO Attending Clinician Unavailable Yary Ambrocio DO Attending Clinician [phone] [email or web address]_Kajennifera_S Attending Clinician UnavailKAILASH Grant Attending Clinician Unavailable Kailash Sosa Attending Clinician [phone] INA YEE Attending Clinician UnavailIna Decker Attending Clinician [phone] VICTORIA MILES Attending Clinician Unavailable YURI FLORES Attending Clinician Unavail able Genaro Urias Attending Clinician Unavailable GC_GCBZW_Kadikattya_S Admitting Clinician UnavailKAILASH Grant Admitting Clinician Unavailable Payers Payer Name Policy Type Policy Number Effective Date Expirati on Date Source [facility] [id number] 2022 00:00:00 [place] [id number] 2019 00:00:00 Problems Condition Name Condition Details Condition Category Status Onset Date Resolution Date Last Treatment Date Treating Clinician Comments Source Pregestati onal diabetes mellitus, 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 Failed early 3hr gtt [facility] Abnormal maternal glucose tolerance, antepartum Abnormal maternal glucose tolerance, antepartum Disease Active 07-05 00:00: 00 Overview: Formattin g of this note might be different from the original. Failed 3hr gtt [facility] History of pre-eclamp abril History of pre-eclamp abril Disease Active 07-04 00:00: 00 [facility] History of delivery History of delivery Disease Active 07-04 00:00: 00 Overview: Formattin g of this note might be different from the original. ROR requested [id number] ay for IOL for NRFHT [facility] Supervisio n of high-risk Supervisio n of high-risk Disease Active 07-04 00:00: 00 [facility] Multiparit y Multiparit y Disease Active 07-04 00:00: 00 [facility] Obesity in Obesity in Disease Active 10-14 00:00: 00 [facility] Allergies, Adverse Reactions, Alerts Allergy Name Allergy Type Status Severity Reaction(s) Onset Date Inactive Date Treating Clinician Comments Source NO KNOWN ALLERGIE S Drug Class Active [facility] Social History Social Habit Start Date Stop Date Quantity Comments Source ASSERTION 2018-05-30 00:00:00 [facility] Gender [facility] intake 2022-11-02 00:00:00 2022-11-02 00:00:00 0 /d [facility] Exposure to SARS-CoV-2 (event) 2022-02-28 00:00:00 2022-03-10 14:36:00 Not sure [facility] History of Social function 2018-09-21 00:00:2018-09-21 00:00:00 [facility] Tobacco use and exposure 2012-10-23 00:00:00 2012-10-23 00:00:00 Smokeless tobacco non-user [facility] Sex Assigned At 1995 00:00:00 1995 00:00:00 [facility] Smoking Status Start Date Stop Date Source Never smoked tobacco [facility] Medications Ordered Medication Name Filled Medication Name Start Date Stop Date Current Medication? Ordering Clinician Indication Dosage Frequency Signature (SIG) Comments Components Source ondansetron (ZOFRAN-ODT ) disintegrat ing tablet 8 mg 05-15 04:00: 00 05-15 03:06 :00 No 8mg 8 mg, Oral, ONCE, 1 dose, On 05/15/23 at 2200, Routine [facility] naproxen (NAPROSYN) tablet 500 mg 05-15 04:00: 00 05-15 03:06 :00 No 500mg 500 mg, Oral, ONCE NOW, 1 dose, On 05/15/23 at 2200, Routine [facility] naproxen sodium (ANAPROX DS) 550 mg tablet 05-14 00:00: 00 Yes [id number] 550mg Take 1 tablet by mouth in the morning and 1 tablet in the evening. Take with meals. [facility] ondansetron 4 mg disintegrat ing tablet 05-14 00:00: 00 Yes [id number] 4mg Take 1 tablet by mouth every 8 (eight) hours as needed for Nausea and Vomiting (N/V). [facility] methylPREDN ISolone (MEDROL, CAYDEN,) 4 mg tablets 05-14 00:00: 00 Yes [id number] Take by mouth SEE-INSTRU CTIONS. follow package directions [facility] ketorolac (TORADOL) injection 30 mg 11-02 19:15: 00 11-02 18:47 :00 No 30mg 30 mg, Slow IV Push, ONCE, 1 dose, On Tue11/02/22 at 1415, SAVAGE [facility] cefTRIAXone (ROCEPHIN) 1,000 mg in NaCl 0.9% (NS) 100 mL MINI-BAG 11-02 18:45: 00 11-02 19:04 :00 No 1000mg 1,000 mg, IV Piggyback, ONCE, 1 dose, On Tue11/02/22 at 1345, Administer over 30 Minutes, 100 mL
Reas on for Anti-Infec tive: Documented Infection< br>Documen lisa Infection Site: Urine
D uration of Therapy: 7 days [facility] ondansetron (ZOFRAN (PF)) injection 4 mg 11-02 18:30: 00 11-02 18:46 :00 No 4mg 4 mg, Slow IV Push, ONCE, 1 dose, On Tue11/02/22 at 1330, SAVAGE [facility] ondansetron 4 mg disintegrat ing tablet 11-02 00:00: 00 Yes [id number] 4mg Take 1 tablet by mouth every 8 (eight) hours as needed for Nausea and Vomiting (N/V). [facility] ondansetron 4 mg disintegrat ing tablet 11-02 00:00: 00 05-14 00:00 :00 No [id number] 4mg Take 1 tablet by mouth every 8 (eight) hours as needed for Nausea and Vomiting (N/V). [facility] cefdinir 300 mg capsule 11-02 00:00: 00 11-13 04:59 :00 No [id number] 300mg Take 1 capsule by mouth in the morning and 1 capsule in the evening. Do all this for 10 days. [facility] ketorolac (TORADOL) injection 30 mg 2021-03 22:45: 00 03-10 22:22 :00 No 30mg 30 mg, Intramuscu lar, ONCE, 1 dose, On Tue03/10/22 at 1645, Routine [facility] metoclopram andre HCl (REGLAN) injection 10 mg 2021-03 22:00: 00 03-10 22:24 :00 No 10mg 10 mg, Intramuscu lar, ONCE, 1 dose, On Tue03/10/22 at 1600, [facility] blood sugar diagnostic (TRUE METRIX GLUCOSE TEST STRIP) strip 07-11 00:00: 00 Yes [id number] Check glucose 4 x daily [facility] Blood-Gluco se Meter (TRUE METRIX AIR GLUCOSE METER) Kit 07-11 00:00: 00 Yes [id number] Check blood glucose 4x daily [facility] lancets 28 gauge [facility] 07-11 00:00: 00 Yes [id number] Check blood glucose 4x daily [facility] blood sugar diagnostic (TRUE METRIX GLUCOSE TEST STRIP) strip 07-11 00:00: 00 Yes [id number] Check glucose 4 x daily [facility] Blood-Gluco se Meter (TRUE METRIX AIR GLUCOSE METER) Kit 07-11 00:00: 00 Yes [id number] Check blood glucose 4x daily [facility] lancets 28 gauge [facility] 07-11 00:00: 00 Yes [id number] Check blood glucose 4x daily [facility] blood sugar diagnostic (TRUE METRIX GLUCOSE TEST STRIP) strip 07-11 00:00: 00 Yes [id number] [facility] (TRUE METRIX AIR GLUCOSE METER) Kit 07-11 00:00: 00 Yes [id number] Check blood glucose 4x daily [facility] lancets 28 gauge [facility] 07-11 00:00: 00 Yes [id number] [facility] (TRUE METRIX GLUCOSE TEST STRIP) strip 07-11 00:00: 00 Yes [id number] [facility] x [facility] (TRUE METRIX AIR GLUCOSE METER) Kit 07-11 00:00: 00 Yes [id number] Check blood glucose 4x daily [facility] lancets 28 gauge [facility] 07-11 00:00: 00 Yes [id number] Check blood glucose 4x daily [facility] vit #33-iron-FA -dha (SELECT-OB + DHA) 29 mg iron-1 mg -250 mg combo pack 04-25 00:00: 00 Yes [id number] 1{packe t} Take 1 Packet by mouth daily. [facility] vit #33-iron-FA -dha (SELECT-OB + DHA) 29 mg iron-1 mg -250 mg combo pack 04-25 00:00: 00 Yes [id number] 1{packe t} Take 1 Packet by mouth daily. [facility] vit #33-iron-FA -dha (SELECT-OB + DHA) 29 mg iron-1 mg -250 mg combo pack 04-25 00:00: 00 Yes [id number] 1{packe t} Take 1 Packet by mouth daily. [facility] vit #33-iron-FA -dha (SELECT-OB + DHA) 29 mg iron-1 mg -250 mg combo pack 04-25 00:00: 00 Yes [id number] 1{packe t} Take 1 Packet by mouth daily. [facility] Immunizations Ordered Immunization Name Filled Immunization Name Date Status Comments Source HPV9 2015-11-10 00:00:00 Completed [facility] HPV9 2015-11-10 00:00:00 Completed [facility] HPV9 2015-11-10 00:00:00 Completed [facility] Tdap 2015-07-07 00:00:00 Completed [facility] TDAP 2015-07-07 00:00:00 Completed [facility] TDAP 2015-07-07 00:00:00 Completed [facility] Influenza Virus Vaccine Quad IM 3+ YRS 2015-02-27 00:00:00 Completed [facility] Influenza Virus Vaccine Quad IM 3+ YRS 2015-02-27 00:00:00 Completed [facility] Influenza Virus Vaccine Quad IM 3+ YRS 2015-02-27 00:00:00 Completed [facility] Tdap 2013-04-04 00:00:00 Completed [facility] TDAP 2013-04-04 00:00:00 Completed [facility] TDAP 2013-04-04 00:00:00 Completed [facility] Influenza Virus Vaccine (3+ yrs) 2012-12-05 00:00:00 Completed [facility] Influenza Virus Vaccine (3+ yrs) 2012-12-05 00:00:00 Completed [facility] Influenza Virus Vaccine (3+ yrs) 2012-12-05 00:00:00 Completed [facility] Tdap 2012-09-11 00:00:00 Completed [facility] TDAP 2012-09-11 00:00:00 Completed [facility] TDAP 2012-09-11 00:00:00 Completed [facility] TDAP Unknown Completed [facility] Influenza Virus Vaccine (3+ yrs) Unknown Completed [facility] TDAP Unknown Completed [facility] Influenza Virus Vaccine Quad IM 3+ YRS Unknown Completed [facility] TDAP Unknown Completed [facility] HPV9 Unknown Completed [facility] Vital Signs Vital Name Observation Time Observation Value Comments S ource Systolic blood pressure 2023-05-16 02:54:00 139 mm[Hg] [facility] Diastolic blood pressure 2023-05-16 02:54:00 80 mm[Hg] [facility] Heart rate 2023-05-16 02:54:00 99 /min [facility] Body temperature 2023-05-16 02:54:00 37.5 Nery [facility] Respiratory rate 2023-05-16 02:54:00 18 /min [facility] Body height 2023-05-16 02:54:00 154.9 cm [facility] Body weight 2023-05-16 02:54:00 81.647 kg [facility] BMI 2023-05-16 02:54:00 34.01 kg/m2 [facility] Oxygen saturation in Arterial blood by Pulse oximetry 2023-05-16 02:54:00 96 /min [facility] Systolic blood pressure 2022-11-02 20:35:00 140 mm[Hg] [facility] Diastolic blood pressure 2022-11-02 20:35:00 98 mm[Hg] [facility] Heart rate 2022-11-02 20:35:00 77 /min [facility] Respiratory rate 2022-11-02 20:35:00 16 /min [facility] Oxygen saturation in Arterial blood by Pulse oximetry 2022-11-02 20:35:00 100 /min [facility] Body temperature 2022-11-02 17:46:00 36.89 Nery [facility] Body height 2022-11-02 17:46:00 154.9 cm [facility] Body weight 2022-11-02 17:46:00 86.183 kg [facility] BMI 2022-11-02 17:46:00 35.90 kg/m2 [facility] Systolic blood pressure 2022-03-10 20:38:00 152 mm[Hg] [facility] Diastolic blood pressure 2022-03-10 20:38:00 91 mm[Hg] [facility] Heart rate 2022-03-10 20:38:00 86 /min [facility] Body temperature 2022-03-10 20:38:00 36.72 Nery [facility] Respiratory rate 2022-03-10 20:38:00 18 /min [facility] Body height 2022-03-10 20:38:00 154.9 cm [facility] Body weight 2022-03-10 20:38:00 77.111 kg [facility] BMI 2022-03-10 20:38:00 32.12 kg/m2 [facility] Oxygen saturation in Arterial blood by Pulse oximetry 2022-03-10 20:38:00 99 /min [facility] Procedures Procedure Date / Time Performed Performing Clinicia n Source RAPID INFLUENZA A/B 2023-05-16 03:06:00 Tony Ambrocio [facility] COVID-19 (ID NOW RAPID TESTING) 2023-05-16 03:06:00 Yary Ambrocio [facility] CONSENT/REFUSAL FOR DIAGNOSIS AND TREATMENT 2023-05-16 02:48:40 Doctor Unassigned, [place] [facility] CT ABDOMEN PELVIS WO CONTRAST 2022-11-02 18:47:00 Kailash Cruz [facility] COMP. METABOLIC PANEL ([id number]) 2022-11-02 18:36:00 Kailash Cruz [facility] CBC WITH DIFF 2022-11-02 18:36:00 Kailash Cruz [facility] URINALYSIS 2022-11-02 17:53:00 Yary Ambrocio [facility] POCT TEST 2022-11-02 17:52:00 Tony Ambrocio [facility] CONSENT/REFUSAL FOR DIAGNOSIS AND TREATMENT 2022-11-02 17:44:32 Doctor Unassigned, [place] [facility] CONSENT/REFUSAL FOR DIAGNOSIS AND TREATMENT 2022-03-10 20:29:51 Doctor Unassigned, [place] [facility] Encounters Start Date/Time End Date/Time Encounter Type Admission Type Attending [facility] Care Department Encounter ID Source 2023-05-15 21:02:00 2023-05-15 22:10:00 Emergency X SINGER YARY [facility] ERT [id number] [facility] 2023-05-15 21:02:00 2023-05-15 22:10:[address] [facility] [id number] 350.1.13.10 4.2.7.2.686 [id number] [facility] 2023-01-12 00:00:00 2023-01-12 00:00:00 Outpatient GC_GCBZW_Ka diyala_S [facility] [id number] [facility] 2022-11-02 12:53:00 2022-11-02 15:40:00 Emergency X KAILASH CRUZ [facility] ERT [id number] [facility] 2022-11-02 12:53:00 2022-11-02 15:40:[address] [facility] [id number] 350.1.13.10 4.2.7.2.686 [id number] [facility] 2022-03-10 14:39:00 2022-03-10 16:57:00 Emergency X INA YEE [facility] ERT [id number] [facility] 2022-03-10 14:39:00 2022-03-10 16:57:[address] [facility] 1.84.114 350.1.13.10 4.2.7.2.686 [id number] [facility] 2020-01-15 09:30:00 2020-01-15 09:30:00 Outpatient R ADUM, [facility] [id number] [facility] 2020-01-15 09:30:00 2020-01-15 09:30:00 Outpatient R ADUM, [facility] [id number] [facility] 2020-01-09 09:30:00 2020-01-09 09:30:00 Outpatient ADUM, [facility] [id number] [facility] 2020-01-09 09:30:00 2020-01-09 09:30:00 Outpatient R ADUM, [facility] [id number] [facility] 2019-12-27 13:00:00 2019-12-27 13:00:00 Outpatient R [facility] [id number] [facility] 2019-12-27 13:00:00 2019-12-27 13:00:00 Outpatient R YURI FLORES [facility] [id number] [facility] 2018-11-09 00:00:00 2018-11-09 00:00:00 Genaro Gorman [facility] [employer] [facility]ILD [facility] 1.840.114 350.1.13.10 4.2.7.2.686 [id number] 2018-11-09 00:00:00 2018-11-09 00:00:00 Genaro Gorman [facility] [facility] 1.840.114 350.1.13.10 4.2.7.2.686 [id number] [facility] Results Test Description Test Time Test Comments Results Result Co mments Source [facility] WITH [id number] 19:06:24* Test Item Value Reference Range Interpretation Comme nts WBC (test code = 6690-2) 8.90 See_Comment [Automated messa ge] The system which generated this result transmitted reference range: 4.30 - 11.10 10*3/?L. The reference range was not used to interpret this result as normal/abnormal. RBC (test code = 789-8) 4.33 See_Comment [Automated messa ge] The system which generated this result transmitted reference range: 3.93 - 5.25 10*6/?L. The reference range was not used to interpret this result as normal/abnormal. HGB (test code = 718-7) 12.5 g/dL 11.6-15.0 HCT (test code = 4544-3) 36.8 % 35.7-45.2 MCV (test code = 787-2) 85.0 fL 80.6-95.5 MCH (test code = 785-6) 28.9 pg 25.9-32.8 MCHC (test code = 786-4) 34.0 g/dL 31.6-35.1 RDW-SD (test code = 39429-8) 36.3 fL 39.0-49.9 L RDW-CV (test code = 788-0) 11.9 % 12.0-15.5 L PLT (test code = 777-3) 274 See_Comment [Automated messa ge] The system which generated this result transmitted reference range: 166 - 358 10*3/?L. The reference range was not used to interpret this result as normal/abnormal. MPV (test code = 50305-8) 10.4 fL 9.5-12.9 NRBC/100 WBC (test code = 6215041039) 0.0 See_Comment [Automated [employer] ssage] The system which generated this result transmitted reference range: 0.0 - 10.0 /100 WBCs. The reference range was not used to interpret this result as normal/abnormal. NRBC x10^3 (test code = 3238264282) See_Comment [Automated messa ge] The system which generated this result transmitted reference range: 10*3/?L. The reference range was not used to interpret this result as normal/abnormal. GRAN MAT (NEUT) % (test code = 770-8) 61.1 % IMM GRAN % (test code = 6577655298) 0.30 % LYMPH % (test code = 736-9) 31.2 % MONO % (test code = 5905-5) 6.3 % EOS % (test code = 713-8) 0.7 % BASO % (test code = 706-2) 0.4 % GRAN MAT x10^3(ANC) (test code = 2618925119) 5.43 10*3/uL 1.88-7.09 IMM GRAN x10^3 (test code = 1532754116) 0.03 10*3/uL 0.00-0.06 LYMPH x10^3 (test code = 731-0) 2.78 10*3/uL 1.32-3.29 MONO x10^3 (test code = 742-7) 0.56 10*3/uL 0.33-0.92 EOS x10^3 (test code = 711-2) 0.06 10*3/uL 0.03-0.39 BASO x10^3 (test code = 704-7) 0.04 10*3/uL 0.01-0.07 Lab Interpretation (test code = 16796-5) [id number] 17:52:00* Test Item Value Reference Range Interpretation Comme nts POCT PREG (test code = 1605) Negative On board controls acceptable with C Line (test code = 3574) Yes POCT PREG LOT # (test code = 3575) [id number] POCT PREG TEST DATE ( test code = 3576) 03/16/2024 Lab Interpretation (test cod e = 53859-4) Normal [facility] Notes Date/Time Note Provider Source 2023-05-15 22:09:52 Aa8o8KnSsZAePosHbcNo BEsxd05pEQaqQL et2/uIG1x3X2a0H1E3kIBo4rc5fvCZ7408 -03-03T22:09:52 Awake, alert oriented X4, respiratory even and unlabored,skin w/d color appropriate for race, moves all ext well, pt encouraged to follow up with pcp and or return as neededPt given printed and verbal discharge instructions regarding Myalgia , patient verbralized understanding and signature obtained, patient denies any other concerns.Prescriptions providedAdvised to seek medical attention for new/prolonged/worsening of symptoms,No adverse reaction to meds given in ER noted upon dischargePt [facility] 95521-6Mekwygdvq department IounKF4284-22-45Q68:10:09[facility] NoteTXT1.2.840.179807.1.13.104.2.7 .2.367746|[id number] for patient yxgq76783-9PfigINWXKKBYTJMYmhsmpni d C-CDA narrative text[address] VokhEsqu[id number] 00AKCTAFUPVAPDNHBZKYISFY7771-82-89 T22:10:091.2.840.140788.1.72.3.15| 1.2.840.795132.1.13.104.2.7.2.7278 [id number] [facility] 2023-05-15 20:55:32 obGyzY+8rfFz8pNvbcJj 7164PRd11vspjz 6yeAsknr23pgSHgASilS+lgIxyYD5R4730 -03-03T20:55:32 Pt states that she woke up this am her right leg was numb lasting approx 30 min, than she began to have right arm pain around 1400 she began to have headache and N/V. Pt denies any injury 22787-6Rjccwgtlp department Triage wtmkWW7936-74-10X72:56:44[facility] Triage noteTXT1.2.840.232489.1.13.104.2.7 .2.311106|[id number] for patient fbfm44663-2Pqyuvswts department NoteLNNARRATIVEFormatted C-CDA narrative [id number] J Bran RN[id number] 88WUHITROWWPXRNBXIGPRBEZ9321-30-01 T20:56:441.2.840.799156.1.72.3.15| 1.2.840.843331.1.13.104.2.7.2.7278 [id number] Veronica Melody Sotomayor RN [facility] 2022-11-02 15:39:35 cWaZdsQ50j0hqhcH9hhU NfnYkmOsd+ho03 g3Q2r7Hvu3EvhFAKC5d8KR2TiKzXKU8459 -08-22T15:39:35 Written/verbal d/c instructions, out of ER no distress 04452-8Swhexhkuw department KpwyIX0243-25-08D63:39:58[facility] NoteTXT1.2.840.733711.1.13.104.2.7 .2.363026|[id number] for patient ecfv39592-9YfjwEVINGQYZGJ[id number] 82ARDCUUDGVNZHWAJDIVWIAX6945-11-73 T15:39:581.2.840.101575.1.72.3.15| 1.2.840.652286.1.13.104.2.7.2.7278 [id number] [facility] 2022-11-02 12:44:59 HKq7IaePNS3MkCh47WWK bDv+jhZdlUPjRf Gtif7qGCM56lmIqReZOXSKcfRT7+ZM65062022T12:44:59 Esperanza Patino is a 26 year old female c/o bilat low back pain since last night , did not take anything for pain, no dysuria, states 11 days late on period, did home preg test 4 days ago but was negative, states started spotting a little but doesn't think it's her period 38324-2Fnwjpaqvu department Triage ewhhHS9043-69-98Y45:50:35[facility] Triage noteTXT1.2.840.780911.1.13.104.2.7 .2.677847|[id number] for patient agio45745-0Xfauvpyah department NoteLNUT[address] AduhIesrgbcysVpbynqkvbXRYP89856354 78WDOZCKWHMOVNEQONNSLVNX2165-08-61 T12:50:351.2.840.091244.1.72.3.15| 1.2.840.378797.1.13.104.2.7.2.7278 [id number] [facility]"
--- NOTE | 2023-05-18 11:04 | EDPHYS ---
Physician Documentation [facility] Name: Pricila Xiong Age: 27 yrs Sex: Female : 1995 Arrival Date: 05/18/2023 Time: 10:40 Bed IW10 Private MD: ED Physician Shahriar Booth HPI: 05/17 10:57 This 27 yrs old Female presents to ER via Unassigned with complaints of Leg rn Pain - Right. 10:58 The patient presents with pain, a rash, swelling. The complaints affect the medial rn aspect of right thigh, medial aspect of right knee and right quadriceps. Onset: The symptoms/episode began/occurred 5 day(s) ago. Modifying factors: The symptoms are alleviated by nothing. the symptoms are aggravated by movement. Associated signs and symptoms: Pertinent positives: rash, Pertinent negatives weakness. Severity of symptoms: At their worst the symptoms were moderate, in the emergency department the symptoms are unchanged. The patient has not experienced similar symptoms in the past. The patient has been recently seen by a physician:. Patient reports 5 days of right lower extremity rash and pain. Woke up with pain to right leg and now increased warmth and redness that is spreading upwards. Seen at outside ER and told allergic reaction, given steroids and antihistamines and not improving. Patient denies fever but reports chills. No nausea or vomiting. No history of DVT or PE. No trauma. No open wound or evidence of bite.. Historical: - Allergies: 11:28 No Known Allergies; bp - PMHx: 11:28 None; bp - Immunization history:: Adult Immunizations up to date. - Social history:: Smoking status: Patient denies any tobacco usage or history of. - Family history:: not pertinent. - Hospitalizations: : No recent hospitalization is reported. ROS: 10:58 Constitutional: Negative for fever, chills, and weight loss, MS/Extremity: Positive for rn right lower extremity rash and pain Skin: Positive for right leg rash and redness Exam: 10:58 Constitutional: This is a well developed, well nourished patient who is awake, alert, rn and in no acute distress. Cardiovascular: Regular rate and rhythm. No pulse deficits. MS/ Extremity: Pulses equal, no cyanosis. Neurovascular intact. Right medial and posterior thigh with erythema, confluent and spreads just distal to the right knee on medial side. No wound or bite. Not circumferential rash. No fluctuance. No calf tenderness. Mild tenderness towards right inguinal region without significant lymphadenopathy. Vital Signs: 10:45 BP 120 / 79; Pulse 91; Resp 16; Temp 98; Pulse Ox 99% ; Weight 81.65 kg; Height 5 ft. 1 bp in. ; 10:45 Body Mass Index 34.01 (81.65 kg, 154.94 cm) bp MDM: 10:46 Patient medically screened. rn 10:58 Differential diagnosis: Cellulitis, early lymphangitis, bite. Data reviewed: vital rn signs, nurses notes. 11:04 Counseling: I had a detailed discussion with the patient and/or guardian regarding the rn historical points, exam findings, and any diagnostic results supporting the discharge/admit diagnosis, the need for outpatient follow up, to return to the emergency department if symptoms worsen or persist or if there are any questions or concerns that arise at home. Special discussion: I discussed with the patient/guardian in detail that at this point there is no indication for admission to the hospital. It is understood, however, that if the symptoms persist or worsen the patient needs to return immediately for re-evaluation. Administered Medications: 11:37 Drug: traMADol PO 50 mg PO once Route: PO; bp 11:43 Follow up: Response: No adverse reaction bp 11:37 Drug: Trimethoprim-Sulfamethoxazole PO (160 mg-800 mg (DS) 1 tablet PO once Route: PO; bp 11:43 Follow up: Response: No adverse reaction bp Disposition Summary: 05/18/23 11:04 Discharge Ordered Notes: Location: Home rn Problem: new rn Symptoms: are unchanged rn Condition: Stable rn Diagnosis - Cellulitis of right lower limb rn Followup: rn - With: Private Physician - When: As needed - Reason: Recheck today's complaints, Re-evaluation by your physician Discharge Instructions: - Discharge Summary Sheet rn - Cellulitis, Adult rn Forms: - Work release form bd - Medication Reconciliation Form rn - Thank You Letter rn - Antibiotic golf tournament consultant - Prescription Opioid Use rn - Patient Portal Instructions rn - Leadership Thank You Letter rn Prescriptions: - Cephalexin 500 mg Oral Capsule - take 1 capsule ORAL route every 12 hours for 10 days; 20 capsule; Refills: 0, rn Product Selection Permitted - Tramadol 50 mg Oral Tablet - take 1 tablet ORAL route every 8 hours as needed; 12 tablet; Refills: 0, rn Product Selection Permitted - Bactrim DS 800-160 mg Oral Tablet - take 1 tablet ORAL route every 12 hours for 10 days; 20 tablet; Refills: 0, rn Product Selection Permitted Signatures: Shahriar Booth MD MD rn Francis Phillips RN RN bp
--- NOTE | 2023-05-18 11:45 | ER ---
Nurse's Notes [facility] Name: Pricila Xiong Age: 27 yrs Sex: Female : 1995 Arrival Date: 05/18/2023 Time: 10:40 Bed IW10 Private MD: Diagnosis: Cellulitis of right lower limb Presentation: 05/17 10:45 Chief complaint: Patient states: R CALF PAIN SINCE TUESDAY. Coronavirus screen: At bp this time, the client does not indicate any symptoms associated with coronavirus-19. Ebola Screen: No symptoms or risks identified at this time. Initial Sepsis Screen: Does the patient meet any 2 criteria? No. Patient's initial sepsis screen is negative. Does the patient have a suspected source of infection? No. Patient's initial sepsis screen is negative. Risk Assessment: Do you want to hurt yourself or someone else? Patient reports no desire to harm self or others. Onset of symptoms is unknown. 10:45 Method Of Arrival: Wheelchair bp 10:45 Acuity: SYDNEE 3 bp Triage Assessment: 11:28 General: Appears uncomfortable, Behavior is calm, cooperative, appropriate for age. bp Pain: Complains of pain in right leg. Historical: - Allergies: 11:28 No Known Allergies; bp - PMHx: 11:28 None; bp - Immunization history:: Adult Immunizations up to date. - Social history:: Smoking status: Patient denies any tobacco usage or history of. - Family history:: not pertinent. - Hospitalizations: : No recent hospitalization is reported. Screenin:42 [facility] ED Fall Risk Assessment (Adult) History of falling in the last 3 months, bp including since admission No falls in past 3 months (0 pts). Abuse screen: Denies threats or abuse. Denies injuries from another. Nutritional screening: No deficits noted. Tuberculosis screening: No symptoms or risk factors identified. Assessment: 11:42 Reassessment: DC HOME VIA W/C WITH FAMILY. bp Vital Signs: 10:45 BP 120 / 79; Pulse 91; Resp 16; Temp 98; Pulse Ox 99% ; Weight 81.65 kg; Height 5 ft. 1 bp in. ; 10:45 Body Mass Index 34.01 (81.65 kg, 154.94 cm) bp ED Course: 10:43 Patient arrived in ED. im 10:45 Shahriar Booth MD is Attending Physician. rn 11:28 Triage completed. bp 11:28 Arm band placed on. bp 11:37 Francis Phillips, RN is Primary Nurse. bp 11:42 Patient has correct armband on for positive identification. bp 11:42 No provider procedures requiring assistance completed. Patient did not have IV access bp during this emergency room visit. Administered Medications: 11:37 Drug: traMADol PO 50 mg PO once Route: PO; bp 11:43 Follow up: Response: No adverse reaction bp 11:37 Drug: Trimethoprim-Sulfamethoxazole PO (160 mg-800 mg (DS) 1 tablet PO once Route: PO; bp 11:43 Follow up: Response: No adverse reaction bp Medication: 11:42 VIS not applicable for this client. bp Outcome: 11:04 Discharge ordered by . rn 11:42 Discharged to home via wheelchair, with family, bp 11:42 Condition: stable 11:42 Discharge instructions given to patient, Instructed on discharge instructions, follow up and referral plans. medication usage, Demonstrated understanding of instructions, follow-up care, medications, Prescriptions given X 2, 11:44 Patient left the ED. bp Signatures: Shahriar Booth MD MD rn Francis Phillips, RN RN bp Elba Mcknight
[2023-05-18 12:17] VITALS: BP 120/79; TEMP 98; O2SAT 99
== END ==
LOC: ER 10:40
DX: L03.115 Cellulitis of right lower limb (principal)
CPT/HCPCS: 99283

== ENCOUNTER 2023-10-27 09:50 | Emergency (ER) | payer SELFPAY ==
[2023-10-27] MEDS ORDERED: CEPHALEXIN 250 MG CAP ONE (10:26)
[2023-10-27] MEDS ORDERED: SMZ./TMP. 800/160 MG TABLET ONE (10:27)
--- NOTE | 2023-10-27 10:31 | ER ---
Nurse's Notes [facility] Name: Pricila Xiong Age: 27 yrs Sex: Female : 1995 Arrival Date: 10/27/2023 Time: 09:50 Bed 16 Private MD: Diagnosis: Cellulitis of right lower limb-foot;Tinea pedis Presentation: 10/26 10:05 Chief complaint: Patient states: had pain, swelling and redness to top of right foot iw since yesterday , has had hx of celulitis in that leg. Coronavirus screen: At this time, the client does not indicate any symptoms associated with coronavirus-19. Initial Sepsis Screen: Does the patient meet any 2 criteria? No. Patient's initial sepsis screen is negative. Does the patient have a suspected source of infection? No. Patient's initial sepsis screen is negative. Risk Assessment: Do you want to hurt yourself or someone else? Patient reports no desire to harm self or others. Onset of symptoms was October 26, 2023. 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 - Infectious Disease History:: Denies. - Social history:: Smoking status: Patient denies any tobacco usage or history of. - Family history:: not pertinent. Screenin:49 [facility] ED Fall Risk Assessment (Adult) History of falling in the last 3 months, kc6 including since admission No falls in past 3 months (0 pts) Confusion or Disorientation No (0 pts) Intoxicated or Sedated No (0 pts) Impaired Gait No (0 pts) Mobility Assist Device Used No (0 pt) Altered Elimination No (0 pt) Score/Fall Risk Level 0 - 2 = Low Risk. Abuse screen: Denies threats or abuse. Denies injuries from another. Nutritional screening: No deficits noted. Tuberculosis screening: No symptoms or risk factors identified. Assessment: 10:49 General: Appears in no apparent distress. comfortable, well groomed, well developed, kc6 Behavior is calm, cooperative, appropriate for age. Pain: Complains of pain in right foot and dorsum of right foot. Neuro: Level of Consciousness is awake, alert, obeys commands, Oriented to person, place, time, situation, Appropriate for age. Cardiovascular: Capillary refill < 3 seconds. Respiratory: Airway is patent Trachea midline Respiratory effort is even, unlabored, Respiratory pattern is regular, symmetrical. GI: No signs and/or symptoms were reported involving the gastrointestinal system. : No signs and/or symptoms were reported regarding the genitourinary system. EENT: No signs and/or symptoms were reported regarding the EENT system. Derm: No signs and/or symptoms reported regarding the dermatologic system. Skin is intact, is healthy with good turgor, Skin is dry, Skin is normal, Skin temperature is warm Rash noted that is red, on dorsum of right foot. Musculoskeletal: No signs and/or symptoms reported regarding the musculoskeletal system. Circulation, motion, and sensation intact. Capillary refill < 3 seconds, Range of motion: intact in all extremities. Vital Signs: 10:05 BP 141 / 97; Pulse 85; Resp 16; Temp 98.4; Weight 81.65 kg; Height 5 ft. 1 in. ; Pain kc6 5/10; 10:05 Body Mass Index 34.01 (81.65 kg, 154.94 cm) kc6 10:05 Pain Scale: Adult kc6 ED Course: 09:54 Patient arrived in ED. ra3 09:54 Dave Burton MD is Attending Physician. keila 10:06 Triage completed. iw 10:07 Arm band placed on. iw 10:18 Patrizia Huynh, BLAIRE is Primary Nurse. kc6 10:49 Patient has correct armband on for positive identification. Bed in low position. Call kc6 light in reach. Side rails up X 1. Pulse ox on. NIBP on. Door closed. Noise minimized. Lights dimmed. Warm blanket given. Pillow given. 11:06 No provider procedures requiring assistance completed. Patient did not have IV access kc6 during this emergency room visit. Administered Medications: 10:34 Drug: Trimethoprim-Sulfamethoxazole PO (160 mg-800 mg (DS) 1 tablet PO once Route: PO; ld1 11:06 Follow up: Response: No adverse reaction kc6 10:34 Drug: Cephalexin PO 500 mg PO once Route: PO; ld1 11:06 Follow up: Response: No adverse reaction kc6 10:58 Drug: Mycelex - Lotrimin AF Topical Aerosol 2 % 2 sprays Topical once Route: Topical; kc6 Site: affected area; 11:06 Follow up: Response: No adverse reaction kc6 Medication: 11:07 VIS not applicable for this client. kc6 Outcome: 10:31 Discharge ordered by . keila 11:07 Discharged to home ambulatory, kc6 11:07 Condition: good 11:07 Discharge instructions given to patient, Instructed on discharge instructions, follow up and referral plans. medication usage, Demonstrated understanding of instructions, follow-up care, medications, Prescriptions given X 3, 11:07 Patient left the ED. kc6 Signatures: Dave Burton MD MD cha Williams, Irene, RN RN iw Meg Chowdary RN RN ld1 Patrizia Huynh RN RN kc6 Bertha Garcia ra3 Corrections: (The following items were deleted from the chart) 10:50 10:05 BP 141 / 97; Resp 16bpm; Temp 98.4F; 81.65 kg; Height 5 ft. 1 in.; BMI: 34.0; kc6 Pain 510, Adult; iw
--- NOTE | 2023-10-27 10:31 | EDPHYS ---
Physician Documentation [facility] Name: Pricila Xiong Age: 27 yrs Sex: Female : 1995 Arrival Date: 10/27/2023 Time: 09:50 Bed 16 Private MD: GANGA Physician Dave Burton HPI: 10/26 10:21 This 27 yrs old Female presents to ER via Ambulatory with complaints of Foot keila Pain, Feet Swelling. 10:21 The patient presents with decreased range of motion, pain. The complaints affect the keila right foot, medial aspect of right toes and dorsum of right foot. Context: resulted from fungal. Onset: The symptoms/episode began/occurred 3 day(s) ago. Modifying factors: The symptoms are alleviated by elevation of extremity, the symptoms are aggravated by movement, wearing shoes. Associated signs and symptoms: The patient has no apparent associated signs or symptoms. The patient has experienced similar episodes in the past, a few times. 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 - Infectious Disease History:: Denies. - Social history:: Smoking status: Patient denies any tobacco usage or history of. - Family history:: not pertinent. ROS: 10:21 Constitutional: Negative for fever, chills, and weight loss, Eyes: Negative for injury, keila pain, redness, and discharge, ENT: Negative for injury, pain, and discharge, Neck: Negative for injury, pain, and swelling, Cardiovascular: Negative for chest pain, palpitations, and edema, Respiratory: Negative for shortness of breath, cough, wheezing, and pleuritic chest pain, Abdomen/GI: Negative for abdominal pain, nausea, vomiting, diarrhea, and constipation, Back: Negative for injury and pain, : Negative for injury, bleeding, discharge, and swelling, Neuro: Negative for headache, weakness, numbness, tingling, and seizure, Psych: Negative for depression, anxiety, suicide ideation, homicidal ideation, and hallucinations, Allergy/Immunology: Negative for hives, rash, and allergies, Endocrine: Negative for neck swelling, polydipsia, polyuria, polyphagia, and marked weight changes, Hematologic/Lymphatic: Negative for swollen nodes, abnormal bleeding, and unusual bruising, 10:21 MS/extremity: Positive for erythema, pain, tenderness, of the dorsum of right foot, Exam: 10:21 Constitutional: This is a well developed, well nourished patient who is awake, alert, keila and in no acute distress. Head/Face: Normocephalic, atraumatic. Eyes: Pupils equal round and reactive to light, extra-ocular motions intact. Lids and lashes normal. Conjunctiva and sclera are non-icteric and not injected. Cornea within normal limits. Periorbital areas with no swelling, redness, or edema. ENT: Nares patent. No nasal discharge, no septal abnormalities noted. Tympanic membranes are normal and external auditory canals are clear. Oropharynx with no redness, swelling, or masses, exudates, or evidence of obstruction, uvula midline. Mucous membranes moist. Neck: Trachea midline, no thyromegaly or masses palpated, and no cervical lymphadenopathy. Supple, full range of motion without nuchal rigidity, or vertebral point tenderness. No Meningismus. Chest/axilla: Normal chest wall appearance and motion. Nontender with no deformity. No lesions are appreciated. Cardiovascular: Regular rate and rhythm with a normal S1 and S2. No gallops, murmurs, or rubs. Normal PMI, no JVD. No pulse deficits. Respiratory: Lungs have equal breath sounds bilaterally, clear to auscultation and percussion. No rales, rhonchi or wheezes noted. No increased work of breathing, no retractions or nasal flaring. Abdomen/GI: Soft, non-tender, with normal bowel sounds. No distension or tympany. No guarding or rebound. No evidence of tenderness throughout. Back: No spinal tenderness. No costovertebral tenderness. Full range of motion. Neuro: Awake and alert, GCS 15, oriented to person, place, time, and situation. Cranial nerves II-XII grossly intact. Motor strength 5/5 in all extremities. Sensory grossly intact. Cerebellar exam normal. Normal gait. Psych: Awake, alert, with orientation to person, place and time. Behavior, mood, and affect are within normal limits. 10:21 Musculoskeletal/extremity: ROM: intact in all extremities, Circulation is intact in all extremities. Compartment Syndrome exam of affected extremity: is normal. DVT Exam: negative Homans' sign noted on exam, no appreciated bluish discoloration, pain, swelling, tenderness, erythema, increased warmth, that is moderate, of the dorsum of right foot, 10:21 Skin: cellulitis, that is moderate, on the right foot, Vital Signs: 10:05 BP 141 / 97; Pulse 85; Resp 16; Temp 98.4; Weight 81.65 kg; Height 5 ft. 1 in. ; Pain kc6 5/10; 10:05 Body Mass Index 34.01 (81.65 kg, 154.94 cm) kc6 10:05 Pain Scale: Adult kc6 MDM: 09:54 Patient medically screened. [facility] 10:27 Differential diagnosis: gout, cellulitis. Data reviewed: vital signs, nurses notes. keila Consideration of Admission/Observation Escalation of care including admission/observation considered. I considered the following discharge prescriptions or medication management in the emergency department Medications were administered in the Emergency Department. See MAR. Care significantly affected by the following chronic conditions: none. Administered Medications: 10:34 Drug: Trimethoprim-Sulfamethoxazole PO (160 mg-800 mg (DS) 1 tablet PO once Route: PO; ld1 11:06 Follow up: Response: No adverse reaction kc6 10:34 Drug: Cephalexin PO 500 mg PO once Route: PO; ld1 11:06 Follow up: Response: No adverse reaction kc6 10:58 Drug: Mycelex - Lotrimin AF Topical Aerosol 2 % 2 sprays Topical once Route: Topical; kc6 Site: affected area; 11:06 Follow up: Response: No adverse reaction kc6 Disposition Summary: 10/27/23 10:31 Discharge Ordered Notes: Location: Home keila Problem: new keila Symptoms: have improved keila Condition: Stable keila Diagnosis - Cellulitis of right lower limb - foot keila - Tinea pedis keila Followup: keila - With: Private Physician - When: 2 - 3 days - Reason: Recheck today's complaints, Continuance of care, Re-evaluation by your physician Discharge Instructions: - Discharge Summary Sheet keila - Athlete's Foot keila - Cellulitis, Adult keila - Cellulitis, Adult, [id number] keila Forms: - Medication Reconciliation Form keila - Antibiotic Education keila - Prescription Opioid Use keila - Patient Portal Instructions keila - Leadership Thank You Letter keila - Work release form iw Prescriptions: - nystatin-triamcinolone 100,000-0.1 unit/gram-% Topical ointment - apply 1 application TOPICAL route 3 times per day; 15 gram; Refills: 0, Product [facility] Selection Permitted - Cephalexin 500 mg Oral Capsule - take 1 capsule ORAL route every 6 hours for 10 days; 40 capsule; Refills: 0, [facility] Product Selection Permitted - Bactrim DS 800-160 mg Oral Tablet - take 1 tablet ORAL route every 12 hours for 10 days; 20 tablet; Refills: 0, [facility] Product Selection Permitted Signatures: Dave Burton MD MD cha Williams, Irene RN BLAIRE iw Meg Chowdary RN RN ld1 Patrizia Huynh RN RN kc6
[2023-10-27] MEDS ORDERED: CLOTRIMAZOLE 1% CREAM 15 GM TOP ONE (11:00)
[2023-10-27 11:16] VITALS: BP 141/97; TEMP 98.4
--- OUTSIDE RECORDS SUMMARY | 2023-10-28 09:27 | XMS REPORT | Continuity of Care Document ---
Author Name Unknown Address [address] [facility] [address] [place] [address] [facility] thconnect Address [address] [facility]. [address] [place] [address] Care Team Providers Care Assistant Buyer Name Role Phone PCP, PATIENT DOES NOT HAVE A Primary Care Physic eldon Unavailable YARY AMBROCIO Attending Clinician Unavailable aYry Ambrocio DO Attending Clinician [phone] [email or web address]_S Attending Clinician UnavailKAILASH Grant Attending Clinician Unavailable Kailash Sosa Attending Clinician [phone] INA YEE Attending Clinician UnavailIna Decker Attending Clinician [phone] IVCTORIA MILES Attending Clinician Unavailable YURI FLORES Attending Clinician Unavail Genaro Medrano Attending Clinician Unavailable [email or web address]_S Admitting Clinician UnavailKAILASH Grant Admitting Clinician Unavailable Payers Payer Name Policy Type Policy Number Effective Date Expirati on Date Source [facility] [id number] 2022 00:00:00 [place] [id number] 2019 00:00:00 Problems Condition Name Condition Details Condition Category Status Onset Date Resolution Date Last Treatment Date Treating Clinician Comments Source Pregestati onal diabetes mellitus, 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 Failed early 3hr gtt [facility] Abnormal maternal glucose tolerance, antepartum Abnormal maternal glucose tolerance, antepartum Disease Active 07-05 00:00: 00 Overview: Formattin g of this note might be different from the original. Failed 3hr gtt [facility] History of pre-eclamp abril History of pre-eclamp abril Disease Active 07-04 00:00: 00 [facility] History of delivery History of delivery Disease Active 07-04 00:00: 00 Overview: Formattin g of this note might be different from the original. ROR requested [id number] ay for IOL for NRFHT [facility] Supervisio n of high-risk Supervisio n of high-risk Disease Active 07-04 00:00: 00 [facility] Multiparit y Multiparit y Disease Active 07-04 00:00: 00 [facility] Obesity in Obesity in Disease Active 10-14 00:00: 00 [facility] Allergies, Adverse Reactions, Alerts Allergy Name Allergy Type Status Severity Reaction(s) Onset Date Inactive Date Treating Clinician Comments Source NO KNOWN ALLERGIE S Drug Class Active [facility] Social History Social Habit Start Date Stop Date Quantity Comments Source ASSERTION 2018-05-30 00:00:00 [facility] Sexual [facility] Alcohol intake 2022-11-02 00:00:00 2022-11-02 00:00:00 0 /d [facility] Exposure to SARS-CoV-2 (event) 2022-02-28 00:00:00 2022-03-10 14:36:00 Not sure [facility] History of Social function 2018-09-21 00:00:00 2018-09-21 00:00:00 [facility] Tobacco use and exposure 2012-10-23 00:00:00 2012-10-23 00:00:00 Smokeless tobacco non-user [facility] Sex Assigned At 1995 00:00:00 1995 00:00:00 [facility] Smoking Status Start Date Stop Date Source Never smoked tobacco [facility] Medications Ordered Medication Name Filled Medication Name Start Date Stop Date Current Medication? Ordering Clinician Indication Dosage Frequency Signature (SIG) Comments Components Source ondansetron (ZOFRAN-ODT ) disintegrat ing tablet 8 mg 05-15 04:00: 00 05-15 03:06 :00 No 8mg 8 mg, Oral, ONCE, 1 dose, On 05/15/23 at 2200, Routine [facility] naproxen (NAPROSYN) tablet 500 mg 05-15 04:00: 00 05-15 03:06 :00 No 500mg 500 mg, Oral, ONCE NOW, 1 dose, On 05/15/23 at 2200, Routine [facility] naproxen sodium (ANAPROX DS) 550 mg tablet 05-14 00:00: 00 Yes [id number] 550mg Take 1 tablet by mouth in the morning and 1 tablet in the evening. Take with meals. [facility] ondansetron 4 mg disintegrat ing tablet 05-14 00:00: 00 Yes [id number] 4mg Take 1 tablet by mouth every 8 (eight) hours as needed for Nausea and Vomiting (N/V). [facility] methylPREDN ISolone (MEDROL, CAYDEN,) 4 mg tablets 05-14 00:00: 00 Yes [id number] Take by mouth SEE-INSTRU CTIONS. follow package directions [facility] ketorolac (TORADOL) injection 30 mg 11-02 19:15: 00 11-02 18:47 :00 No 30mg 30 mg, Slow IV Push, ONCE, 1 dose, On Tue11/02/22 at 1415, SAVAGE [facility] cefTRIAXone (ROCEPHIN) 1,000 mg in NaCl 0.9% (NS) 100 mL MINI-BAG 11-02 18:45: 00 11-02 19:04 :00 No 1000mg 1,000 mg, IV Piggyback, ONCE, 1 dose, On Tue11/02/22 at 1345, Administer over 30 Minutes, 100 mL
Reas on for Anti-Infec tive: Documented Infection< br>Documen lisa Infection Site: Urine
D uration of Therapy: 7 days [facility] ondansetron (ZOFRAN (PF)) injection 4 mg 11-02 18:30: 00 11-02 18:46 :00 No 4mg 4 mg, Slow IV Push, ONCE, 1 dose, [facility]/02/22 [facility] 1330[facility] disintegrat ing tablet 11-02 00:00: 00 05-14 00:00 :00 No [id number] 4mg Take 1 tablet by mouth every 8 (eight) hours as needed for Nausea and Vomiting (N/V). [facility] cefdinir 300 mg capsule 11-02 00:00: 00 11-13 04:59 :00 No [id number] 300mg Take 1 capsule by mouth in the morning and 1 capsule in the evening. Do all this for 10 days. [facility] ketorolac (TORADOL) injection 30 mg 2021-03 22:45: 00 03-10 22:22 :00 No 30mg 30 mg, Intramuscu lar, ONCE, 1 dose, On Tue03/10/22 at 1645, Routine [facility] metoclopram andre HCl (REGLAN) injection 10 mg 2021-03 22:00: 00 03-10 22:24 :00 No 10mg 10 mg, Intramuscu lar, ONCE, 1 dose, On Tue03/10/22 at 1600, SAVAGE [facility] blood sugar diagnostic (TRUE METRIX GLUCOSE TEST STRIP) strip 07-11 00:00: 00 Yes [id number] Check glucose 4 x daily [facility] Blood-Gluco se Meter (TRUE METRIX AIR GLUCOSE METER) Kit 07-11 00:00: 00 Yes [id number] Check blood glucose 4x daily [facility] lancets 28 gauge Misc 07-11 00:00: 00 Yes [id number] Check blood glucose 4x daily [facility] blood sugar diagnostic (TRUE METRIX GLUCOSE TEST STRIP) strip 07-11 00:00: 00 Yes [id number] Check glucose 4 x daily [facility] Blood-Gluco se Meter (TRUE METRIX AIR GLUCOSE METER) Kit 07-11 00:00: 00 Yes [id number] Check blood glucose 4x daily [facility] lancets 28 gauge Misc 07-11 00:00: 00 Yes [id number] Check blood glucose 4x daily [facility] Blood-Gluco se Meter (TRUE METRIX AIR GLUCOSE METER) Kit 07-11 00:00: 00 Yes [id number] Check blood glucose 4x daily [facility] vit #33-iron-FA -dha (SELECT-OB + DHA) 29 mg iron-1 mg -250 mg combo pack 04-25 00:00: 00 Yes [id number] 1{packe t} Take 1 Packet by mouth daily. [facility] vit #33-iron-FA -dha (SELECT-OB + DHA) 29 mg iron-1 mg -250 mg combo pack 04-25 00:00: 00 Yes [id number] 1{packe t} Take 1 Packet by mouth daily. [facility] Immunizations Ordered Immunization Name Filled Immunization Name Date Status Comments Source HPV9 2015-11-10 00:00:00 Completed [facility] HPV9 2015-11-10 00:00:00 Completed [facility] HPV9 2015-11-10 00:00:00 Completed [facility] Tdap 2015-07-07 00:00:00 Completed [facility] TDAP 2015-07-07 00:00:00 Completed [facility] TDAP 2015-07-07 00:00:00 Completed [facility] Influenza Virus Vaccine Quad IM 3+ YRS 2015-02-27 00:00:00 Completed [facility] Influenza Virus Vaccine Quad IM 3+ YRS 2015-02-27 00:00:00 Completed [facility] Influenza Virus Vaccine Quad IM 3+ YRS 2015-02-27 00:00:00 Completed [facility] Tdap 2013-04-04 00:00:00 Completed [facility] TDAP 2013-04-04 00:00:00 Completed [facility] TDAP 2013-04-04 00:00:00 Completed [facility] Influenza Virus Vaccine (3+ yrs) 2012-12-05 00:00:00 Completed [facility] Influenza Virus Vaccine (3+ yrs) 2012-12-05 00:00:00 Completed [facility] Influenza Virus Vaccine (3+ yrs) 2012-12-05 00:00:00 Completed [facility] Tdap 2012-09-11 00:00:00 Completed [facility] TDAP 2012-09-11 00:00:00 Completed [facility] TDAP 2012-09-11 00:00:00 Completed [facility] TDAP Unknown Completed [facility] Influenza Virus Vaccine (3+ yrs) Unknown Completed [facility] TDAP Unknown Completed [facility] Influenza Virus Vaccine Quad IM 3+ YRS Unknown Completed [facility] TDAP Unknown Completed [facility] HPV9 Unknown Completed [facility] Vital Signs Vital Name Observation Time Observation Value Comments S ource Systolic blood pressure 2023-05-16 02:54:00 139 mm[Hg] [facility] Diastolic blood pressure 2023-05-16 02:54:00 80 mm[Hg] [facility] Heart rate 2023-05-16 02:54:00 99 /min [facility] Body temperature 2023-05-16 02:54:00 37.5 Nery [facility] Respiratory rate 2023-05-16 02:54:00 18 /min [facility] Body height 2023-05-16 02:54:00 154.9 cm [facility] Body weight 2023-05-16 02:54:00 81.647 kg [facility] BMI 2023-05-16 02:54:00 34.01 kg/m2 [facility] Oxygen saturation in Arterial blood by Pulse oximetry 2023-05-16 02:54:00 96 /min [facility] Systolic blood pressure 2022-11-02 20:35:00 140 mm[Hg] [facility] Diastolic blood pressure 2022-11-02 20:35:00 98 mm[Hg] [facility] Heart rate 2022-11-02 20:35:00 77 /min [facility] Respiratory rate 2022-11-02 20:35:00 16 /min [facility] Oxygen saturation in Arterial blood by Pulse oximetry 2022-11-02 20:35:00 100 /min [facility] Body temperature 2022-11-02 17:46:00 36.89 Nery [facility] Body height 2022-11-02 17:46:00 154.9 cm [facility] Body weight 2022-11-02 17:46:00 86.183 kg [facility] BMI 2022-11-02 17:46:00 35.90 kg/m2 [facility] Systolic blood pressure 2022-03-10 20:38:00 152 mm[Hg] [facility] Diastolic blood pressure 2022-03-10 20:38:00 91 mm[Hg] [facility] Heart rate 2022-03-10 20:38:00 86 /min [facility] Body temperature 2022-03-10 20:38:00 36.72 Nery [facility] Respiratory rate 2022-03-10 20:38:00 18 /min [facility] Body height 2022-03-10 20:38:00 154.9 cm [facility] Body weight 2022-03-10 20:38:00 77.111 kg [facility] BMI 2022-03-10 20:38:00 32.12 kg/m2 [facility] Oxygen saturation in Arterial blood by Pulse oximetry 2022-03-10 20:38:00 99 /min [facility] Procedures Procedure Date / Time Performed Performing Clinicia n Source RAPID INFLUENZA A/B 2023-05-16 03:06:00 Tony Ambrocio [facility] COVID-19 (ID NOW RAPID TESTING) 2023-05-16 03:06:00 Yary Ambrocio [facility] CONSENT/REFUSAL FOR DIAGNOSIS AND TREATMENT 2023-05-16 02:48:40 Doctor Unassigned, Gratz [facility] CT ABDOMEN PELVIS WO CONTRAST 2022-11-02 18:47:00 Kailash Cruz [facility] COMP. METABOLIC PANEL ([id number]) 2022-11-02 18:36:00 Kailash Cruz [facility] CBC WITH DIFF 2022-11-02 18:36:00 Kailash Cruz [facility] URINALYSIS 2022-11-02 17:53:00 Yary Ambrocio [facility] POCT TEST 2022-11-02 17:52:00 Tony Ambrocio [facility] CONSENT/REFUSAL FOR DIAGNOSIS AND TREATMENT 2022-11-02 17:44:32 Doctor Unassigned, Gratz [facility] CONSENT/REFUSAL FOR DIAGNOSIS AND TREATMENT 2022-03-10 20:29:51 Doctor Unassigned, Gratz [facility] Encounters Start Date/Time End Date/Time Encounter Type Admission Type Attending [facility] Care Facility Care Department Encounter ID Source 2023-05-15 21:02:00 2023-05-15 22:10:00 Emergency X YARY AMBROCIO [facility] ERT [id number] [facility] 2023-05-15 21:02:00 2023-05-15 22:10:00 Emergency Yary Ambrocio [facility] [id number] [facility] 2023-01-12 00:00:00 2023-01-12 00:00:00 Outpatient GC_GCBZW_Ka diyala_S PRIV [facility] [id number] [facility] 2022-11-02 12:53:00 2022-11-02 15:40:00 Emergency X KAILASH CRUZ [facility] ERT [id number] [facility] 2022-11-02 12:53:00 2022-11-02 15:40:00 Emergency Kailash Cruz [facility] [id number] [facility] 2022-03-10 14:39:00 2022-03-10 16:57:00 Emergency X INA YEE [facility] ERT [id number] [facility] 2022-03-10 14:39:00 2022-03-10 16:57:00 [facility] [place] [id number] [facility] 2020-01-15 09:30:00 2020-01-15 09:30:00 Outpatient R ADUM, VICTORIA [facility] [id number] [facility] 2020-01-15 09:30:00 2020-01-15 09:30:00 Outpatient R ADUM, VICTORAI [facility] [id number] [facility] 2020-01-09 09:30:00 2020-01-09 09:30:00 Outpatient ADUM, [facility] [id number] [facility] 2020-01-09 09:30:00 2020-01-09 09:30:00 Outpatient R ADUM, VICTORIA [facility] [id number] [facility] 2019-12-27 13:00:00 2019-12-27 13:00:00 Outpatient R [facility] [id number] [facility] 2019-12-27 13:00:00 2019-12-27 13:00:00 Outpatient R AKINSIYURI ARZOLA [facility] [id number] [facility] 2018-11-09 00:00:00 2018-11-09 00:00:00 Genaro Gorman [facility] AIRLINE SECURITY REPRESENTATIVE [facility] [id number] 2018-11-09 00:00:00 2018-11-09 00:00:00 Genaro Gorman [facility] AIRLINE SECURITY REPRESENTATIVE [facility] & CHILD [facility] [id number] [facility] Results Test Description Test Time Test Comments Results Result Co mments Source [facility] WITH [id number] 19:06:24* Test Item Value Reference Range Interpretation [...] 34.0 g/dL 31.6-35.1 RDW-SD (test code = 60935-8) 36.3 fL 39.0-49.9 L RDW-CV (test code = 788-0) 11.9 % 12.0-15.5 L PLT (test code = 777-3) 274 See_Comment [Automated messa ge] The system which generated this result transmitted reference range: 166 - 358 10*3/?L. The reference range was not used to interpret this result as normal/abnormal. MPV (test code = 08771-1) 10.4 fL 9.5-12.9 NRBC/100 WBC (test code = 4519209404) 0.0 See_Comment [Automated me ssage] The system which generated this result transmitted reference range: 0.0 - 10.0 /100 WBCs. The reference range was not used to interpret this result as normal/abnormal. NRBC x10^3 (test code = 5382623495) See_Comment [Automated messa ge] The system which generated this result transmitted reference range: 10*3/?L. The reference range was not used to interpret this result as normal/abnormal. GRAN MAT (NEUT) % (test code = 770-8) 61.1 % IMM GRAN % (test code = 6731742667) 0.30 % LYMPH % (test code = 736-9) 31.2 % MONO % (test code = 5905-5) 6.3 % EOS % (test code = 713-8) 0.7 % BASO % (test code = 706-2) 0.4 % GRAN MAT x10^3(ANC) (test code = 9617261839) 5.43 10*3/uL 1.88-7.09 IMM GRAN x10^3 (test code = 3085341270) 0.03 10*3/uL 0.00-0.06 LYMPH x10^3 (test code = 731-0) 2.78 10*3/uL 1.32-3.29 MONO x10^3 (test code = 742-7) 0.56 10*3/uL 0.33-0.92 EOS x10^3 (test code = 711-2) 0.06 10*3/uL 0.03-0.39 BASO x10^3 (test code = 704-7) 0.04 10*3/uL 0.01-0.07 Lab Interpretation (test code = 01979-4) Abnormal [facility] [id number] 17:52:00* Test Item Value Reference Range Interpretation Comme nts POCT PREG (test code = 1605) Negative On board controls acceptable with C Line (test code = 3574) Yes POCT PREG LOT # (test code = 3575) [id number] POCT PREG TEST DATE ( test code = 3576) 03/16/2024 Lab Interpretation (test cod e = 15227-1) Normal [facility] Notes Date/Time Note Provider Source 2023-05-15 22:09:52 Awake, alert oriented X4, respiratory even and unlabored,skin w/d color appropriate for race, moves all ext well, pt encouraged to follow up with pcp and or return as needed Pt given printed and verbal discharge instructions regarding Myalgia , patient verbralized understanding and signature obtained, patient denies any other concerns. Prescriptions provided Advised to seek medical attention for new/prolonged/worsening of symptoms, No adverse reaction to meds given in ER noted upon discharge Pt ambulated to the lobby with steady gait [facility] 2023-05-15 20:55:32 Pt states that she woke up this am her right leg was numb lasting approx 30 min, than she began to have right arm pain around 1400 she began to have headache and N/V. Pt denies any injury [facility] Veronica Sotomayor RN [facility] 2022-11-02 15:39:35 Formatting of this n ote might be different from the original. Written/verbal d/c instructions, out of ER no distress T [facility] 2022-11-02 12:44:59 Formatting of this n ote might be different from the original. Esperanza Patino is a 26 year old female c/o bilat low back pain since last night , did not take anything for pain, no dysuria, states 11 days late on period, did home preg test 4 days ago but was negative, states started spotting a little but doesn't think it's her period [facility]
== END 2023-10-27 11:07 | disposition home or self-care (01) ==
LOC: ER 09:50
DX: L03.115 Cellulitis of right lower limb (principal); B35.3 Tinea pedis
CPT/HCPCS: 99283

== ENCOUNTER 2024-04-03 12:57 | Emergency (ER) | payer SELFPAY ==
--- OUTSIDE RECORDS SUMMARY | 2024-04-03 13:12 | XMS REPORT | Continuity of Care Document ---
Author Name Unknown Address [address] [facility] [address] [place] [address] [facility] thconnect Address [address] [facility] [place] [address] Care Team Providers Care Molding Line Assistant Name Role Phone PCP, PATIENT DOES NOT HAVE A Primary Care Physic eldon Unavailable YARY AMBROCIO Attending Clinician Unavailable Yary Ambrocio DO Attending Clinician [phone] [email or web address]_S Attending Clinician UnavailKAILASH Grant Attending Clinician Unavailable Kailash Sosa Attending Clinician [phone] INA YEE Attending Clinician UnavailIna Decker Attending Clinician [phone] VICTORIA MILES Attending Clinician Unavailable YURI FLORES Attending Clinician Unavail Genaro Medrano Attending Clinician Unavailable [email or web address]_S Admitting Clinician UnavailKAILASH Grant Admitting Clinician Unavailable Payers Payer Name Policy Type Policy Number Effective Date Expirati on Date Source [facility] [id number] 2022 00:00:00 [place] [id number] 2019 00:00:00 Problems Condition Name Condition Details Condition Category Status Onset Date Resolution Date Last Treatment Date Treating Clinician Comments Source Pregestati onal diabetes mellitus, 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 Failed early 3hr gtt [facility] Abnormal maternal glucose tolerance, antepartum Abnormal maternal glucose tolerance, antepartum Disease Active 07-05 00:00: 00 Overview: Formattin g of this note might be different from the original. Failed 3hr gtt [facility] History of pre-eclamp abril History of pre-eclamp abril Disease Active 07-04 00:00: 00 [facility] History of delivery History of delivery Disease Active 07-04 00:00: 00 Overview: Formattin g of this note might be different from the original. ROR requested [id number] ay for IOL for NRFHT [facility] Supervisio n of high-risk Supervisio n of high-risk Disease Active 07-04 00:00: 00 [facility] Multiparit y Multiparit y Disease Active 07-04 00:00: 00 [facility] Obesity in Obesity in Disease Active 10-14 00:00: 00 [facility] Allergies, Adverse Reactions, Alerts Allergy Name Allergy Type Status Severity Reaction(s) Onset Date Inactive Date Treating Clinician Comments Source NO KNOWN ALLERGIE S Drug Class Active [facility] Social History Social Habit Start Date Stop Date Quantity Comments Source ASSERTION 2018-05-30 00:00:00 [facility] Alcohol intake 2022-11-02 00:00:00 2022-11-02 00:00:00 0 /d [facility] Exposure to SARS-CoV-2 (event) 2022-02-28 00:00:00 2022-03-10 14:36:00 Not sure [facility] History of Social function 2018-09-21 00:00:00 2018-09-21 00:00:00 [facility] Tobacco use and exposure 2012-10-23 00:00:00 2012-10-23 00:00:00 Smokeless tobacco non-user [facility] Sex Assigned At 1995 00:00:00 1995 00:00:00 [facility] Smoking Status Start Date Stop Date Source Never smoked tobacco [facility] Medications Ordered Medication Name Filled Medication Name Start Date Stop Date Current Medication? Ordering Clinician Indication Dosage Frequency Signature (SIG) Comments Components Source ondansetron (ZOFRAN-ODT ) disintegrat ing tablet 8 mg 05-15 04:00: 00 05-15 03:06 :00 No 8mg 8 mg, Oral, ONCE, 1 dose, On 05/15/23 at 2200, Routine [facility] naproxen (NAPROSYN) tablet 500 mg 05-15 04:00: 00 05-15 03:06 :00 No 500mg 500 mg, Oral, ONCE NOW, 1 dose, On 05/15/23 at 2200, Routine [facility] naproxen sodium (ANAPROX DS) 550 mg tablet 05-14 00:00: 00 Yes [id number] 550mg Take 1 tablet by mouth in the morning and 1 tablet in the evening. Take with meals. [facility] ondansetron 4 mg disintegrat ing tablet 05-14 00:00: 00 Yes [id number] 4mg Take 1 tablet by mouth every 8 (eight) hours as needed for Nausea and Vomiting (N/V). [facility] methylPREDN ISolone (MEDROL, CAYDEN,) 4 mg tablets 05-14 00:00: 00 Yes [id number] Take by mouth SEE-INSTRU CTIONS. follow package directions [facility] ketorolac (TORADOL) injection 30 mg 11-02 19:15: 00 11-02 18:47 :00 No 30mg 30 mg, Slow IV Push, ONCE, 1 dose, On Tue11/02/22 at 1415, SAVAGE [facility] cefTRIAXone (ROCEPHIN) 1,000 mg in NaCl 0.9% (NS) 100 mL MINI-BAG 11-02 18:45: 00 11-02 19:04 :00 No 1000mg 1,000 mg, IV Piggyback, ONCE, 1 dose, On Tue11/02/22 at 1345, Administer over 30 Minutes, 100 mL
Reas on for Anti-Infec tive: Documented Infection< br>Documen lisa Infection Site: Urine
D uration of Therapy: 7 days [facility] ondansetron (ZOFRAN (PF)) injection 4 mg 11-02 18:30: 00 11-02 18:46 :00 No 4mg 4 mg, Slow IV Push, ONCE, 1 dose, On Tue11/02/22 at 1330, SAVAGE [facility] ondansetron 4 mg disintegrat ing tablet 11-02 00:00: 00 05-14 00:00 :00 No [id number] 4mg Take 1 tablet by mouth every 8 (eight) hours as needed for Nausea and Vomiting (N/V). [facility] cefdinir 300 mg capsule 11-02 00:00: 00 11-13 04:59 :00 No [id number] 300mg Take 1 capsule by mouth in the morning and 1 capsule in the evening. Do all this for 10 days. [facility] ketorolac (TORADOL) injection 30 mg 2021-03 22:45: 00 03-10 22:22 :00 No 30mg 30 mg, Intramuscu lar, ONCE, 1 dose, On Tue03/10/22 at 1645, Routine [facility] metoclopram andre HCl (REGLAN) injection 10 mg 2021-03 22:00: 00 03-10 22:24 :00 No 10mg 10 mg, Intramuscu lar, ONCE, 1 dose, On Tue03/10/22 at 1600, SAVAGE [facility] blood sugar diagnostic (TRUE METRIX GLUCOSE TEST STRIP) strip 07-11 00:00: 00 Yes [id number] Check glucose 4 x daily [facility] Blood-Gluco se Meter (TRUE METRIX AIR GLUCOSE METER) Kit 07-11 00:00: 00 Yes [id number] Check blood glucose 4x daily [facility] lancets 28 gauge Misc 07-11 00:00: 00 Yes [id number] Check blood glucose 4x daily [facility] blood sugar diagnostic (TRUE METRIX GLUCOSE TEST STRIP) strip 07-11 00:00: 00 Yes [id number] Check glucose 4 x daily [facility] Blood-Gluco se Meter (TRUE METRIX AIR GLUCOSE METER) Kit 07-11 00:00: 00 Yes [id number] Check blood glucose 4x daily [facility] lancets 28 gauge Misc 07-11 00:00: 00 Yes [id number] Check blood glucose 4x daily [facility] Blood-Gluco se Meter (TRUE METRIX AIR GLUCOSE METER) Kit 07-11 00:00: 00 Yes [id number] Check blood glucose 4x daily [facility] vit #33-iron-FA -dha (SELECT-OB + DHA) 29 mg iron-1 mg -250 mg combo pack 04-25 00:00: 00 Yes [id number] 1{packe t} Take 1 Packet by mouth daily. [facility] vit #33-iron-FA -dha (SELECT-OB + DHA) 29 mg iron-1 mg -250 mg combo pack 04-25 00:00: 00 Yes [id number] 1{packe t} Take 1 Packet by mouth daily. [facility] Immunizations Ordered Immunization Name Filled Immunization Name Date Status Comments Source HPV9 2015-11-10 00:00:00 Completed [facility] HPV9 2015-11-10 00:00:00 Completed [facility] HPV9 2015-11-10 00:00:00 Completed [facility] Tdap 2015-07-07 00:00:00 Completed [facility] TDAP 2015-07-07 00:00:00 Completed [facility] TDAP 2015-07-07 00:00:00 Completed [facility] Influenza Virus Vaccine Quad IM 3+ YRS 2015-02-27 00:00:00 Completed [facility] Influenza Virus Vaccine Quad IM 3+ YRS 2015-02-27 00:00:00 Completed [facility] Influenza Virus Vaccine Quad IM 3+ YRS 2015-02-27 00:00:00 Completed [facility] Tdap 2013-04-04 00:00:00 Completed [facility] TDAP 2013-04-04 00:00:00 Completed [facility] TDAP 2013-04-04 00:00:00 Completed [facility] Influenza Virus Vaccine (3+ yrs) 2012-12-05 00:00:00 Completed [facility] Influenza Virus Vaccine (3+ yrs) 2012-12-05 00:00:00 Completed [facility] Influenza Virus Vaccine (3+ yrs) 2012-12-05 00:00:00 Completed [facility] Tdap 2012-09-11 00:00:00 Completed [facility] TDAP 2012-09-11 00:00:00 Completed [facility] TDAP 2012-09-11 00:00:00 Completed [facility] TDAP Unknown Completed [facility] Influenza Virus Vaccine (3+ yrs) Unknown Completed [facility] Influenza Virus Vaccine Quad IM 3+ YRS Unknown Completed [facility] HPV9 Unknown Completed [facility] Vital Signs Vital Name Observation Time Observation Value Comments S ource Systolic blood pressure 2023-05-16 02:54:00 139 mm[Hg] [facility] Diastolic blood pressure 2023-05-16 02:54:00 80 mm[Hg] [facility] Heart rate 2023-05-16 02:54:00 99 /min [facility] Body temperature 2023-05-16 02:54:00 37.5 Nery [facility] Respiratory rate 2023-05-16 02:54:00 18 /min [facility] Body height 2023-05-16 02:54:00 154.9 cm [facility] Body weight 2023-05-16 02:54:00 81.647 kg [facility] BMI 2023-05-16 02:54:00 34.01 kg/m2 [facility] Oxygen saturation in Arterial blood by Pulse oximetry 2023-05-16 02:54:00 96 /min [facility] Systolic blood pressure 2022-11-02 20:35:00 140 mm[Hg] [facility] Diastolic blood pressure 2022-11-02 20:35:00 98 mm[Hg] [facility] Heart rate 2022-11-02 20:35:00 77 /min [facility] Respiratory rate 2022-11-02 20:35:00 16 /min [facility] Oxygen saturation in Arterial blood by Pulse oximetry 2022-11-02 20:35:00 100 /min [facility] Body temperature 2022-11-02 17:46:00 36.89 Nery [facility] Body height 2022-11-02 17:46:00 154.9 cm [facility] Body weight 2022-11-02 17:46:00 86.183 kg [facility] BMI 2022-11-02 17:46:00 35.90 kg/m2 [facility] Systolic blood pressure 2022-03-10 20:38:00 152 mm[Hg] [facility] Diastolic blood pressure 2022-03-10 20:38:00 91 mm[Hg] [facility] Heart rate 2022-03-10 20:38:00 86 /min [facility] Body temperature 2022-03-10 20:38:00 36.72 Nery [facility] Respiratory rate 2022-03-10 20:38:00 18 /min [facility] Body height 2022-03-10 20:38:00 154.9 cm [facility] Body weight 2022-03-10 20:38:00 77.111 kg [facility] BMI 2022-03-10 20:38:00 32.12 kg/m2 [facility] Oxygen saturation in Arterial blood by Pulse oximetry 2022-03-10 20:38:00 99 /min [facility] Procedures Procedure Date / Time Performed Performing Clinicia n Source RAPID INFLUENZA A/B 2023-05-16 03:06:00 Tony Ambrocio [facility] COVID-19 (ID NOW RAPID TESTING) 2023-05-16 03:06:00 Yary Ambrocio [facility] CONSENT/REFUSAL FOR DIAGNOSIS AND TREATMENT 2023-05-16 02:48:40 Doctor Unassigned, [place] [facility] CT ABDOMEN PELVIS WO CONTRAST 2022-11-02 18:47:00 Kailash Cruz [facility] COMP. METABOLIC PANEL ([id number]) 2022-11-02 18:36:00 Kailash Cruz [facility] CBC WITH DIFF 2022-11-02 18:36:00 Kailash Cruz [facility] URINALYSIS 2022-11-02 17:53:00 [facility] POCT TEST 2022-11-02 17:52:00 Tony Ambrocio [facility] CONSENT/REFUSAL FOR DIAGNOSIS AND TREATMENT 2022-11-02 17:44:32 Doctor Unassigned, [place] [facility] CONSENT/REFUSAL FOR DIAGNOSIS AND TREATMENT 2022-03-10 20:29:51 Doctor Unassigned, [place] [facility] Encounters Start Date/Time End Date/Time Encounter Type Admission Type Attending [facility] Care Department Encounter ID Source 2023-10-31 13:50:25 2023-10-31 13:50:25 Outpatient SFA [facility] [id number] Akash Corona Adrien 2023-05-15 21:02:00 2023-05-15 22:10:00 Emergency X YARY AMBROCIO [facility] ERT [id number] [facility] 2023-05-15 21:02:00 2023-05-15 22:10:00 Emergency Yary Ambrocio [facility] [id number] [facility] 2023-01-12 00:00:00 2023-01-12 00:00:00 Outpatient GC_GCBZW_Ka diyala_S [facility] [id number] [facility] 2022-11-02 12:53:00 2022-11-02 15:40:00 Emergency X KAILASH CRUZ [facility] ERT [id number] [facility] 2022-11-02 12:53:00 2022-11-02 15:40:00 Emergency CruzKailash chaudhary [facility] [id number] [id number] [id number] [facility] 2022-03-10 14:39:00 2022-03-10 16:57:00 Emergency X RIDINA KAUR [facility] ERT [id number] [facility] 2022-03-10 14:39:00 2022-03-10 16:57:00 Emergency PortlandIna kaur [facility] [id number] [id number] [id number] [facility] 2020-01-15 09:30:00 2020-01-15 09:30:00 Outpatient R ADUM, [facility] [id number] [facility] 2020-01-15 09:30:00 2020-01-15 09:30:00 Outpatient R ADUM [facility] [id number] [facility] 2020-01-09 09:30:00 2020-01-09 09:30:00 Outpatient ADUM, [facility] [id number] [facility] 2020-01-09 09:30:00 2020-01-09 09:30:00 Outpatient R ADUM, [facility] [id number] [facility] 2019-12-27 13:00:00 2019-12-27 13:00:00 Outpatient R [facility] [id number] [facility] 2019-12-27 13:00:00 2019-12-27 13:00:00 Outpatient R AKINSIYURI AROZLA [facility] [id number] [facility] 2018-11-09 00:00:00 2018-11-09 00:00:00 Genaro Gorman [facility] [id number] [id number] [id number] 2018-11-09 00:00:00 2018-11-09 00:00:00 Genaro Gorman [facility] [id number] [id number] [id number] [id number] [facility] Results Test Description Test Time Test Comments Results Result Co mments Source [facility] WITH [id number] 19:06:24* Test Item Value Reference Range Interpretation Comme nts WBC (test code = 6690-2) 8.90 See_Comment [Automated [employer]] The system which generated this result transmitted reference range: 4.30 - 11.10 10*3/?L. The reference range was not used to interpret this result as normal/abnormal. RBC (test code = 789-8) 4.33 See_Comment [Automated [employer] [facility]] The system which generated this result transmitted [...] 34.0 g/dL 31.6-35.1 RDW-SD (test code = 17616-4) 36.3 fL 39.0-49.9 L RDW-CV (test code = 788-0) 11.9 % 12.0-15.5 L PLT (test code = 777-3) 274 See_Comment [Automated messa ge] The system which generated this result transmitted reference range: 166 - 358 10*3/?L. The reference range was not used to interpret this result as normal/abnormal. MPV (test code = 36976-5) 10.4 fL 9.5-12.9 NRBC/100 WBC (test code = 6685386770) 0.0 See_Comment [Automated me ssage] The system which generated this result transmitted reference range: 0.0 - 10.0 /100 WBCs. The reference range was not used to interpret this result as normal/abnormal. NRBC x10^3 (test code = 5808051116) See_Comment [Automated messa ge] The system which generated this result transmitted reference range: 10*3/?L. The reference range was not used to interpret this result as normal/abnormal. GRAN MAT (NEUT) % (test code = 770-8) 61.1 % IMM GRAN % (test code = 5410928477) 0.30 % LYMPH % (test code = 736-9) 31.2 % MONO % (test code = 5905-5) 6.3 % EOS % (test code = 713-8) 0.7 % BASO % (test code = 706-2) 0.4 % GRAN MAT x10^3(ANC) (test code = 2408782386) 5.43 10*3/uL 1.88-7.09 IMM GRAN x10^3 (test code = 2563487460) 0.03 10*3/uL 0.00-0.06 LYMPH x10^3 (test code = 731-0) 2.78 10*3/uL 1.32-3.29 MONO x10^3 (test code = 742-7) 0.56 10*3/uL 0.33-0.92 EOS x10^3 (test code = 711-2) 0.06 10*3/uL 0.03-0.39 BASO x10^3 (test code = 704-7) 0.04 10*3/uL 0.01-0.07 Lab Interpretation (test code = 19440-0) Abnormal [facility] [id number] 17:52:00* Test Item Value Reference Range Interpretation Comme nts POCT PREG (test code = 1605) Negative On board controls acceptable with C Line (test code = 3574) Yes POCT PREG LOT # (test code = 3575) [id number] POCT PREG TEST DATE ( test code = 3576) 03/16/2024 Lab Interpretation (test cod e = 36899-9) [facility]
--- NOTE | 2024-04-03 13:15 | EDPHYS ---
Physician Documentation [facility] Name: Pricila Xiong Age: 28 yrs Sex: Female : 1995 Arrival Date: 04/03/2024 Time: 12:57 Bed Waiting Private MD: ED Physician Dave Burton HPI: 04/03 13:16 This 28 yrs old Female presents to ER via Ambulatory with complaints of dr5 Abscess - on Head. 13:16 The patient presents with an abscess of the forehead, The patient presents with dr5 cellulitis of the forehead. Patient is a 28-year-old female with no past history coming in with small cyst/pimple to front right side of head. Patient reports lots of blood was coming out when she hit it with her brush. The bleeding has subsided but patient is noting continuous pain with palpation. Patient denies any medical problems such as high blood pressure diabetes, not take any current medications daily, denies headache, nausea, vomiting, diarrhea, or fever.. 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 - Infectious Disease History:: Denies. - Social history:: Smoking status: Patient denies any tobacco usage or history of. ROS: 13:16 Constitutional: as per hpi dr5 Exam: 13:16 Constitutional: This is a well developed, well nourished patient who is awake, alert, dr5 and in no acute distress. Head/Face: Normocephalic, atraumatic. Eyes: Pupils equal round and reactive to light, extra-ocular motions intact. Lids and lashes normal. Conjunctiva and sclera are non-icteric and not injected. Cornea within normal limits. Periorbital areas with no swelling, redness, or edema. Neck: Trachea midline, no thyromegaly or masses palpated, and no cervical lymphadenopathy. Supple, full range of motion without nuchal rigidity, or vertebral point tenderness. No Meningismus. Chest/axilla: Normal chest wall appearance and motion. Nontender with no deformity. No lesions are appreciated. Cardiovascular: Regular rate and rhythm with a normal S1 and S2. Normal PMI, no JVD. No pulse deficits. Respiratory: Lungs have equal breath sounds bilaterally, clear to auscultation. No rales, rhonchi or wheezes noted. No increased work of breathing, no retractions or nasal flaring. Back: No spinal tenderness. No costovertebral tenderness. Full range of motion. MS/ Extremity: Pulses equal, no cyanosis. Neurovascular intact. Full, normal range of motion. Neuro: Awake and alert, GCS 15, oriented to person, place, time, and situation. Cranial nerves II-XII grossly intact. Motor strength 5/5 in all extremities. Sensory grossly intact. Cerebellar exam normal. Normal gait. 13:16 Skin: cellulitis, that is minimal, Patient has tenderness to palpation of ruptured cyst to the right front head. Mild redness around it. No bleeding or discharge noted, Vital Signs: 13:13 BP 141 / 88; Pulse 77; Resp 15; Temp 98.4(O); Pulse Ox 99% ; Weight 81.65 kg; Height 5 cm10 ft. 1 in. ; Pain 7/10; 13:13 Body Mass Index 34.01 (81.65 kg, 154.94 cm) cm10 13:13 Pain Scale: Adult cm10 MDM: 13:01 Medical Screening Exam initiated dr5 13:16 Differential diagnosis: abscess, cellulitis, Pilar cyst. Data reviewed: vital signs, dr5 nurses notes. 13:16 Care significantly affected by the following Social Determinants of Health: Poor access dr5 to healthcare and/or lack of insurance, Poor access to transportation, Problems related to employment. Counseling: I had a detailed discussion with the patient and/or guardian regarding the historical points, exam findings, and any diagnostic results supporting the discharge/admit diagnosis, the presence of at least one elevated blood pressure reading (>120/80) during this emergency department visit, the need for outpatient follow up, for definitive care, a senior clinical sas programmer, a family practitioner, to return to the emergency department if symptoms worsen or persist or if there are any questions or concerns that arise at home. ED course: Given mild redness around wound, will cover with Keflex twice a day for prevention of potential infection. Recommended patient follow-up primary care doctor this week and/or dermatology if cyst comes back for removal in office. All questions answered. Patient is agreeable to plan. Administered Medications: No medications were administered Disposition: 04/04 07:29 Co-signature as Attending Physician, Dave Burton MD I agree with the assessment and keila plan of care. Disposition Summary: 04/03/24 13:14 Discharge Ordered Notes: Location: Home dr5 Condition: Stable dr5 Diagnosis - Epidermal cyst dr5 Followup: dr5 - With: Emergency Department - When: As needed - Reason: Worsening of condition Followup: dr5 - With: Private Physician - When: 1 - 2 days - Reason: Recheck today's complaints, Continuance of care, Re-evaluation by your physician Discharge Instructions: - Discharge Summary Sheet dr5 - Epidermoid Cyst dr5 Forms: - Medication Reconciliation Form dr5 - Antibiotic Education dr5 - Patient Portal Instructions dr5 - Leadership Thank You Letter dr5 Prescriptions: - Cephalexin 500 mg Oral capsule - take 1 capsule ORAL route every 12 hours for 7 days; 14 capsule; Refills: 0, dr5 Product Selection Permitted Signatures: Dave Burton MD MD cha Martinez, Clarissa, RN RN cm10 To Meyers, FRY COOK-C FRY COOK-Cdr5
--- NOTE | 2024-04-03 13:18 | ER ---
Nurse's Notes [facility] Name: Pricila Xiong Age: 28 yrs Sex: Female : 1995 Arrival Date: 04/03/2024 Time: 12:57 Bed Waiting Private MD: Diagnosis: Epidermal cyst Presentation: 04/03 13:13 Chief complaint: Patient states: abscess to right side of head that popped while cm10 brushing hair. Coronavirus screen: Client denies travel out of the [place] in the last 14 days. Ebola Screen: Patient denies travel to an Ebola-affected area in the 21 days before illness onset. Initial Sepsis Screen: Does the patient meet any 2 criteria? No. Patient's initial sepsis screen is negative. Does the patient have a suspected source of infection? No. Patient's initial sepsis screen is negative. Risk Assessment: Do you want to hurt yourself or someone else? Patient reports no desire to harm self or others. Onset of symptoms was April 03, 2024. 13:13 Method Of Arrival: Ambulatory cm10 13:13 Acuity: SYDNEE 4 cm10 Triage Assessment: 13:15 General: Appears in no apparent distress. comfortable, Behavior is calm, cooperative. cm10 Pain: Complains of pain in head Pain currently is 7 out of 10 on a pain scale. Quality of pain is described as pressure, Pain began suddenly. Neuro: No deficits noted. Level of Consciousness is awake, alert, obeys commands, Oriented to person, place, time, situation, Appropriate for age. Respiratory: No deficits noted. Airway is patent Respiratory effort is even, unlabored, Respiratory pattern is regular, symmetrical. Derm: Abscess located on right frontal area and right temporal area. 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 - Infectious Disease History:: Denies. - Social history:: Smoking status: Patient denies any tobacco usage or history of. Screenin:16 [facility] ED Fall Risk Assessment (Adult) History of falling in the last 3 months, cm10 including since admission No falls in past 3 months (0 pts) Confusion or Disorientation No (0 pts) Intoxicated or Sedated No (0 pts) Impaired Gait No (0 pts) Mobility Assist Device Used No (0 pt) Altered Elimination No (0 pt) Score/Fall Risk Level 0 - 2 = Low Risk Oriented to surroundings, Maintained a safe environment, Hourly rounding (assess needs \T\ fall precautionary measures) done. Abuse screen: Denies threats or abuse. Denies injuries from another. Nutritional screening: No deficits noted. Tuberculosis screening: No symptoms or risk factors identified. Vital Signs: 13:13 BP 141 / 88; Pulse 77; Resp 15; Temp 98.4(O); Pulse Ox 99% ; Weight 81.65 kg; Height 5 cm10 ft. 1 in. ; Pain 7/10; 13:13 Body Mass Index 34.01 (81.65 kg, 154.94 cm) cm10 13:13 Pain Scale: Adult cm10 ED Course: 12:59 Patient arrived in ED. ra3 13:00 To Meyers [facility]C [facility]. dr5 13:00 Dave Burton MD is Attending Physician. dr5 13:15 Triage completed. cm10 13:16 Arm band placed on right wrist. Patient placed in waiting room. cm10 13:16 Patient has correct armband on for positive identification. Provided Education on: cm10 Follow-up instructions. Cardiac monitoring not applicable on this patient. 13:16 No provider procedures requiring assistance completed. Patient did not have IV access cm10 during this emergency room visit. Administered Medications: No medications were administered Medication: 13:16 VIS not applicable for this client. cm10 Outcome: 13:14 Discharge ordered by . dr5 13:17 Discharged to home ambulatory, cm10 13:17 Condition: good 13:17 Discharge instructions given to patient, Instructed on discharge instructions, follow up and referral plans. medication usage, Demonstrated understanding of instructions, follow-up care, medications, wound care, Prescriptions given X 1, 13:17 Patient left the ED. cm10 Signatures: Shelly Starr RN RN cm10 Bertha Garcia ra3 To Meyers FNP-C NATIONAL SALES REPRESENTATIVE-Cdr5
[2024-04-03 13:30] VITALS: BP 141/88; TEMP 98.4; O2SAT 99
== END 2024-04-03 13:17 | disposition home or self-care (01) ==
LOC: ER 12:57
DX: L72.0 Epidermal cyst (principal)
CPT/HCPCS: 99283